=== PATIENT | female | born 1990 | race Caucasian/White ===

== ENCOUNTER → 2018-04-12 15:18 | Outpatient (CLI) | payer OTHER, SELFPAY ==
[2018-04-13 16:06] LABS: HCG Quantitative /Beta subunit < 2.39 mIU/mL
== END ==
PROVIDERS: PCP Nurse Practitioner Family; Visit Provider Nurse Practitioner Family
DX: N91.0 Primary amenorrhea (principal)
CPT/HCPCS: 36415; 84702

== ENCOUNTER 2018-06-08 14:36 | Emergency (ER) | payer OTHER, SELFPAY ==
[2018-06-08 14:45] VITALS: BP 111/77; PULSE 95; RESP 20; TEMP 36.6; O2SAT 100
--- NOTE | 2018-06-08 17:36 | ED_ITS ---
HPI - Abdominal Pain <Marilyn Marshall PA-C - Last Filed: 06/08/18 22:55> General Chief Complaint: Abdominal Pain Stated Complaint: thinks appendicitis Time Seen by Provider: 06/08/18 17:35 Source: patient Mode of arrival: ambulatory Limitations: no limitations History of Present Illness HPI narrative: This 28-year-old female comes in due to persistent abdominal pain for the last 3 months intermittently. She states that at onset she had a very severe attack, saw her PCP the next day and took a Zantac for several weeks which seemed to help. The next month she had intermittent nausea and vomiting and was diagnosed with gastritis. She states that pain has continued to follow the same pattern, usually somewhat better with food and Zantac. She states that she will have intermittent nausea and sometimes vomiting, but often does not correlate with presence or absence of pain. She states that for the last 2 weeks, pain has been persistent. She has continued to have some intermittent nausea, vomited yesterday not today. She states that she was on vacation for the last 2 weeks and did have diet change with less healthy foods. She also did some yard work and lifting prior to that so thought possibly musculoskeletal but not clear to her. Patient prefers serum confirmation of negative status as she has been actively trying to conceive Related Data Allergies Allergy/AdvReac Type Severity Reaction Status Date / Time Penicillins Allergy Anaphylaxis Verified 06/08/18 14:44 Review of Systems <Marilyn Marshall PA-C - Last Filed: 06/08/18 22:55> Review of Systems All systems reviewed & are unremarkable except as noted in HPI and below Exam <Marilyn Marshall PA-C - Last Filed: 06/08/18 22:55> Narrative Exam Narrative: GENERAL APPEARANCE: Patient sitting comfortably, in no distress. HEENT: PERRL, EOMI, no scleral icterus NECK: Supple LUNGS: Clear to auscultation bilaterally. HEART: Rate and rhythm regular, normal S1 and S2, no S3 or S4. ABDOMEN: Soft, nondistended, bowel sounds present x 4 quadrants, no masses palpable, no hepatosplenomegaly. She has moderate left epigastric to upper quadrant tenderness without guarding or rebound. She has referred pain from the right upper quadrant to the left, no focal pain elsewhere. No suprapubic or pelvic tenderness EXTREMITIES: No edema, no cyanosis DERMATOLOGIC: No jaundice or exanthem NEUROLOGIC: Alert and oriented with normal speech and coordination Initial Vital Signs Initial Vital Signs: Vital Signs Temperature 97.8 F 06/08/18 14:45 Pulse Rate 95 H 06/08/18 14:45 Respiratory Rate 20 06/08/18 14:45 Blood Pressure 111/77 06/08/18 14:45 Pulse Oximetry 100 06/08/18 14:45 <Montana Saini DO - Last Filed: 06/09/18 03:51> Initial Vital Signs Initial Vital Signs: Vital Signs Temperature 97.8 F 06/08/18 14:45 Pulse Rate 95 H 06/08/18 14:45 Respiratory Rate 20 06/08/18 14:45 Blood Pressure 111/77 06/08/18 14:45 Pulse Oximetry 100 06/08/18 14:45 Course <Marilyn Marshall PA-C - Last Filed: 06/08/18 22:55> Additional Information: Reviewed lab work and CT with patient, lack of acute urgent findings. 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 She is feeling somewhat improved after medications here with resolution of nausea, no vomiting, some improvement in pain. She states that H2 blockers to help her abdominal symptoms but tend to give her headaches, so she will continue on [id number] PPI. She was given a prepack of Zofran for tonight , and she already has follow-up scheduled with her PCP tomorrow. She agreed to return if any acutely worsening symptoms in the interim. Discussed this may be a combination of left-sided musculoskeletal strain, ovarian cyst, and her ongoing gastritis/reflux Orders Ordered: ED Orders 06/08/18 19:11 CT abdomen pelvis w con Stat Discontinued Medications Al Hydrox/Mg Hydrox/Simethicone 20 ml/ Lidocaine HCl 15 ml 0 ml PO NOW ONE Stop: 06/08/18 17:58 Last Admin: 06/08/18 18:23 Dose: 10 ml Ketorolac Tromethamine (Toradol) 30 mg IV NOW ONE Stop: 06/08/18 19:12 Last Admin: 06/08/18 19:27 Dose: 30 mg Ondansetron HCl (Zofran Odt Prepack) 1 bottle MISC SEEINSTR ONE Stop: 06/08/18 20:49 Last Admin: 06/08/18 20:55 Dose: 1 bottle Pantoprazole Sodium (Protonix) 40 mg IV NOW ONE Stop: 06/08/18 19:12 Last Admin: 06/08/18 19:28 Dose: 40 mg Ranitidine HCl (Zantac) 300 mg PO NOW ONE Stop: 06/08/18 19:12 Last Admin: 06/08/18 19:28 Dose: 300 mg Vital Signs - 8 hr 06/08/18 21:53 06/08/18 21:56 Pulse Rate 80 57 L Respiratory Rate 16 12 Blood Pressure 98/61 Blood Pressure [Right Arm] 128/84 H Pulse Oximetry 100 98 <Montana Saini DO - Last Filed: 06/09/18 03:51> Orders Ordered: ED Orders 06/08/18 19:11 CT abdomen pelvis w con Stat Discontinued Medications Al Hydrox/Mg Hydrox/Simethicone 20 ml/ Lidocaine HCl 15 ml 0 ml PO NOW ONE Stop: 06/08/18 17:58 Last Admin: 06/08/18 18:23 Dose: 10 ml Ketorolac Tromethamine (Toradol) 30 mg IV NOW ONE Stop: 06/08/18 19:12 Last Admin: 06/08/18 19:27 Dose: 30 mg Ondansetron HCl (Zofran Odt Prepack) 1 bottle MISC SEEINSTR ONE Stop: 06/08/18 20:49 Last Admin: 06/08/18 20:55 Dose: 1 bottle Pantoprazole Sodium (Protonix) 40 mg IV NOW ONE Stop: 06/08/18 19:12 Last Admin: 06/08/18 19:28 Dose: 40 mg Ranitidine HCl (Zantac) 300 mg PO NOW ONE Stop: 06/08/18 19:12 Last Admin: 06/08/18 19:28 Dose: 300 mg Vital Signs - 8 hr 06/08/18 21:53 06/08/18 21:56 Pulse Rate 80 57 L Respiratory Rate 16 12 Blood Pressure 98/61 Blood Pressure [Right Arm] 128/84 H Pulse Oximetry 100 98 MDM - Abdominal Pain <Marilyn Marshall PA-C - Last Filed: 06/08/18 22:55> Lab Data Attestation: I reviewed the patient's lab results. Result diagrams: 06/08/18 17:23 06/08/18 17:23 Lab Results 06/08/18 06/08/1818 Range/Units 17:23 17:23 17:25 WBC 7.2 (4.5-11.0) X10^3/uL RBC 4.88 (4.0-5.2) X10^6/uL Hgb 11.8 L (12.0-16.0) g/dL Hct 36.0 (36-46) % MCV 73.8 L (80-100) fL MCH 24.1 L (26-34) PG MCHC 32.7 (30-36) % RDW 14.5 (11.6-14.8) % Plt Count 234 (150-400) X10^3/uL Neut % (Auto) 59.0 (50-75) % Lymph % (Auto) 31.1 (25-40) % [place] % (Auto) 7.7 (3-14) % Eos % (Auto) 0.7 L (2-4) % Baso % (Auto) 1.5 (0-2) % Neut # (Auto) 4300 (5187-6056) /uL Sodium 140 (137-145) mmol/L Potassium 3.6 (3.4-5.1) mmol/L Chloride 106 (98-107) mmol/L Carbon Dioxide 24 (22-32) mmol/L BUN 13 (7-17) mg/dL Creatinine 0.60 (0.52-1.04) mg/dL Estimated GFR > 60.0 (>60) mL/min BUN/Creatinine Ratio 21.7 (6-22) Glucose 94 (70-100) mg/dL Calcium 9.4 (8.4-10.2) mg/dL Total Bilirubin 0.4 (0.2-1.3) mg/dL AST 17 (14-36) IU/L ALT 19 (9-52) IU/L Alkaline Phosphatase 55 (38-126) U/L Total Protein 6.9 (6.3-8.2) g/dL Albumin 4.2 (3.5-5.0) g/dL Globulin 2.7 (1.7-4.1) g/dL Albumin/Globulin Ratio 1.6 (1.0-2.8) Lipase 492 H (23-300) U/L Procalcitonin < 0.05 (<0.5) ng/mL Serum , Qual Negative (Negative) Point of care testing: Point of Care Testing Test Results Negative Urine Dip Bedside Urine Glucose Negative Bedside Urine Bilirubin - Negative Bedside Urine Ketone - Negative Urine Specific [place] 1.025 Bedside Urine Occult Blood - Negative Bedside Urine pH 6.0 Bedside Urine Protein - Negative Bedside Urine Urobilinogen - Negative Bedside Urine Nitrite - Negative Bedside Urine Leukocytes - Negative Esterase Imaging Data CT scan - abdomen: Radiologist's impression: View Report History [address] [address] [address] Scan Report Signed Patient: Zuleika Rosario MR#: [id number] : 1990 Acct:[id number] Age/Sex: 28 / F Date of Service: 06/08/18 Loc: ED Accession Number: [id number] Procedure: CT abdomen pelvis w con Ordering Provider: Marilyn Marshall P.A-C PROCEDURE: CT ABDOMEN PELVIS W CON INDICATIONS: L. uq epigastric pain TECHNIQUE: After the administration of oral and intravenous contrast, 5 mm thick sections acquired from the diaphragms to the symphysis. 5 mm thick coronal and sagittal reformats were performed. For radiation dose reduction, the following was used: automated exposure control, adjustment of mA and/or kV according to patient size. COMPARISON: None. FINDINGS: Image quality: Excellent. ABDOMEN: Lung bases: Lung bases are clear. Heart size is normal. Solid organs: Liver is normal in size and enhancement. Gallbladder is within normal limits. Biliary system is non-dilated. Pancreas enhances normally. Spleen is normal in size and enhancement. No adrenal nodules. Kidneys are normal in size and enhancement, without hydronephrosis. Peritoneum and bowel: Stomach, small bowel, and colon loops are normal in caliber and wall thickness. No pneumoperitoneum. Small amount of free fluid within the pelvis, within physiological limits in a menstruating female. Normal appendix. Nodes and vessels: No retroperitoneal or mesenteric adenopathy. Aorta and inferior vena cava are normal in caliber. Miscellaneous: No ventral hernias. PELVIS: Genitourinary: Bladder wall thickness is normal. Partially collapsed appearing left ovarian cyst. Miscellaneous: No inguinal hernias or adenopathy. Bones: No suspicious bony lesions. No vertebral body compression fractures. IMPRESSION: 1. Findings consistent with a recently ruptured left ovarian cyst. 2. Normal appendix. <Montana Saini, DO - Last Filed: 06/09/18 03:51> Lab Data Lab Results 06/08/18 06/08/18 06/08/18 Range/Units 17:23 17:23 17:25 WBC 7.2 (4.5-11.0) X10^3/uL RBC 4.88 (4.0-5.2) X10^6/uL Hgb 11.8 L (12.0-16.0) g/dL Hct 36.0 (36-46) % MCV 73.8 L (80-100) fL MCH 24.1 L (26-34) PG MCHC 32.7 (30-36) % RDW 14.5 (11.6-14.8) % Plt Count 234 (150-400) X10^3/uL Neut % (Auto) 59.0 (50-75) % Lymph % (Auto) 31.1 (25-40) % [place] % (Auto) 7.7 (3-14) % Eos % (Auto) 0.7 L (2-4) % Baso % (Auto) 1.5 (0-2) % Neut # (Auto) 4300 (6598-6258) /uL Sodium 140 (137-145) mmol/L Potassium 3.6 (3.4-5.1) mmol/L Chloride 106 (98-107) mmol/L Carbon Dioxide 24 (22-32) mmol/L BUN 13 (7-17) mg/dL Creatinine 0.60 (0.52-1.04) mg/dL Estimated GFR > 60.0 (>60) mL/min BUN/Creatinine Ratio 21.7 (6-22) Glucose 94 (70-100) mg/dL Calcium 9.4 (8.4-10.2) mg/dL Total Bilirubin 0.4 (0.2-1.3) mg/dL AST 17 (14-36) IU/L ALT 19 (9-52) IU/L Alkaline Phosphatase 55 (38-126) U/L Total Protein 6.9 (6.3-8.2) g/dL Albumin 4.2 (3.5-5.0) g/dL Globulin 2.7 (1.7-4.1) g/dL Albumin/Globulin Ratio 1.6 (1.0-2.8) Lipase 492 H (23-300) U/L Procalcitonin < 0.05 (<0.5) ng/mL Serum , Qual Negative (Negative) Point of care testing: Point of Care Testing Test Results Negative Urine Dip Bedside Urine Glucose Negative Bedside Urine Bilirubin - Negative Bedside Urine Ketone - Negative Urine Specific [place] 1.025 Bedside Urine Occult Blood - Negative Bedside Urine pH 6.0 Bedside Urine Protein - Negative Bedside Urine Urobilinogen - Negative Bedside Urine Nitrite - Negative Bedside Urine Leukocytes - Negative Esterase Discharge Plan Departure Patient Disposition: Home, Self-Care Clinical Impression: Abdominal pain Discharge Date/Time: 06/08/18 20:50 Interventions: ED Discharge Assessment Last Done: 06/08/18 21:53 Activity Restrictions/Additional Instructions: Your testing tonight does not show evidence of acute inflammation or infection. It looks like you might have had a cyst on her left ovary that ruptured. Perhaps this in addition to straining or left side and the gastritis and reflux that you have been dealing with are the source of your symptoms. Since you are feeling a bit better, please try taking [id number] Prilosec or Prevacid once daily about 45 min prior to a meal. You can use the Zofran that we gave you if needed for nausea. You should return as we talked about if you have acutely worsening symptoms, and otherwise follow up with your PCP next week Referrals: Angelique Parker ARNP [Primary Care Provider] - <[place] Saini DO - Last Filed: 06/09/18 03:51> Cosign ED Attending Ami Attestation: I was immediately available in the department for consultation. Documentation has been reviewed. I agree with assessment and plan.
[2018-06-08 17:37] LABS: Add Manual Diff / Slide Review NO; Basophils Percent Auto 1.5 % (0-2); Eosinophils Percent Auto 0.7 % (2-4); Hemoglobin 11.8 g/dL (12.0-16.0); Lymphocytes Percent Auto 31.1 % (25-40); Mean Corpuscular HGB Conc 32.7 % (30-36); Mean Corpuscular Hemoglobin 24.1 PG (26-34); Mean Corpuscular Volume 73.8 fL (80-100); Monocytes Percent Auto 7.7 % (3-14); Neutrophils Absolute Auto 4300 /uL (3000-5900); Platelet Count 234 X10^3/uL (150-400); Red Blood Cell Count 4.88 X10^6/uL (4.0-5.2); Red Cell Distribution Width 14.5 % (11.6-14.8); White Blood Cell Count 7.2 X10^3/uL (4.5-11.0)
[2018-06-08 17:51] LABS: Alanine Aminotransferase 19 IU/L (9-52); Albumin 4.2 g/dL (3.5-5.0); Albumin Globulin Ratio 1.6 (1.0-2.8); Alkaline Phosphatase 55 U/L (38-126); Aspartate Aminotransferase 17 IU/L (14-36); BUN Creatinine Ratio 21.7 (6-22); Bilirubin Total 0.4 mg/dL (0.2-1.3); Blood Urea Nitrogen 13 mg/dL (7-17); Calcium 9.4 mg/dL (8.4-10.2); Carbon Dioxide 24 mmol/L (22-32); Chloride 106 mmol/L (98-107); Estimated Glomerular Filt Rate > 60.0 mL/min (>60); Globulin 2.7 g/dL (1.7-4.1); Glucose 94 mg/dL (70-100); HEMOLYSIS < 15 (0-50); Lipase 492 U/L (23-300); Potassium 3.6 mmol/L (3.4-5.1); Sodium 140 mmol/L (137-145); Total Protein 6.9 g/dL (6.3-8.2)
[2018-06-08] MEDS: MAG HYDROX/ALUMINUM/SIMETH SUS 20 ML, LIDOCAINE VISCOUS 2% 15 ML PO (18:23)
[2018-06-08 18:34] VITALS: BP 108/55; PULSE 80; RESP 12; O2SAT 99
[2018-06-08 18:56] LABS: Pregnancy Test Serum,Qual Negative (Negative)
--- NOTE | 2018-06-08 19:11 | DI.CT.S_ITS ---
PROCEDURE: CT ABDOMEN PELVIS W CON INDICATIONS: L. uq epigastric pain TECHNIQUE: After the administration of oral and intravenous contrast, 5 mm thick sections acquired from the diaphragms to the symphysis. 5 mm thick coronal and sagittal reformats were performed. For radiation dose reduction, the following was used: automated exposure control, adjustment of mA and/or kV according to patient size. COMPARISON: None. FINDINGS: Image quality: Excellent. ABDOMEN: Lung bases: Lung bases are clear. Heart size is normal. Solid organs: Liver is normal in size and enhancement. Gallbladder is within normal limits. Biliary system is non-dilated. Pancreas enhances normally. Spleen is normal in size and enhancement. No adrenal nodules. Kidneys are normal in size and enhancement, without hydronephrosis. Peritoneum and bowel: Stomach, small bowel, and colon loops are normal in caliber and wall thickness. No pneumoperitoneum. Small amount of free fluid within the pelvis, within physiological limits in a menstruating female. Normal appendix. Nodes and vessels: No retroperitoneal or mesenteric adenopathy. Aorta and inferior vena cava are normal in caliber. Miscellaneous: No ventral hernias. PELVIS: Genitourinary: Bladder wall thickness is normal. Partially collapsed appearing left ovarian cyst. Miscellaneous: No inguinal hernias or adenopathy. Bones: No suspicious bony lesions. No vertebral body compression fractures. IMPRESSION: 1. Findings consistent with a recently ruptured left ovarian cyst. 2. Normal appendix. Dictated by: Kayleigh Soto M.D. on 06/08/2018 at 20:33 Approved by: Kayleigh Soto M.D. on 06/08/2018 at 20:35
[2018-06-08 19:21] LABS: Procalcitonin < 0.05 ng/mL (<0.5)
[2018-06-08] MEDS: KETOROLAC 60 MG/2 ML VIAL 30 MG IV (19:27)
[2018-06-08] MEDS: PANTOPRAZOLE 40 MG VIAL IV (19:28)
--- NOTE | 2018-06-08 19:41 | PC.NURSE ---
patient started PO contrast at 1924.
[2018-06-08] MEDS: ONDANSETRON 4 MG ODT PREPACK 1 BOTTLE MISC (20:55)
[2018-06-08 21:53] VITALS: BP 98/61; PULSE 80; RESP 16; O2SAT 100
[2018-06-08 21:56] VITALS: BP 128/84; PULSE 57; RESP 12; O2SAT 98
== END 2018-06-08 20:50 | disposition home or self-care (01) ==
PROVIDERS: Emergency Medicine; Emergency Provider Internal Medicine; PCP Nurse Practitioner Family
DX: R10.9 Unspecified abdominal pain (principal)
CPT/HCPCS: 36591; 74177; 80053; 81003; 81025; 83690; 84145; 84703; 85025; 96374; 96375; 99283; 99284; C9113; J1885; Q9967

== ENCOUNTER → 2018-07-06 09:47 | Outpatient (CLI) | payer OTHER, SELFPAY ==
--- NOTE | 2018-07-06 | DI.US.S_ITS ---
PROCEDURE: US PELVIC COMPLETE INDICATIONS: LEFT OVARIAN CYST TECHNIQUE: Real-time scanning was performed of the pelvic organs, with image documentation. Additional endovaginal scanning was necessary due to incomplete visualization of the adnexal and endometrial structures by transabdominal scanning. COMPARISON: [facility], CT, CT ABDOMEN PELVIS W CON, 06/08/2018, 20:03. FINDINGS: Transabdominal scanning: Limited scanning through the kidneys shows no hydronephrosis. The kidneys measure 10.6 CM right and 10.9 CM left. No pathologic free abdominal or pelvic fluid. Endovaginal scanning: Uterus: Uterus is normal in size at 3.5 x 4.3 x 7.2 cm. The endometrium measures 5 mm in combined thickness. Multiple small nabothian cysts. Ovaries: The right ovary measures 33 x 40 x 42 mm. Again noted is a ruptured cyst now measuring 16 x 19 x 20 mm. The left ovary shows normal follicular development and measures 24 x 35 x 44 mm. IMPRESSION: 1. Normal uterus and left ovary. 2. 2 cm ruptured cyst right ovary. Dictated by: Taj Kyle M.D. on 07/06/2018 at 13:47 Approved by: Taj Kyle M.D. on 07/06/2018 at 13:50
== END ==
PROVIDERS: PCP Nurse Practitioner Family; Visit Provider Nurse Practitioner Family
DX: N83.201 Unspecified ovarian cyst, right side (principal)
CPT/HCPCS: 76830; 76856

== ENCOUNTER 2018-12-12 11:14 | Emergency (ER) | payer OTHER, SELFPAY ==
[2018-12-12 11:27] VITALS: BP 126/86; PULSE 96; RESP 20; TEMP 36.3; O2SAT 97
[2018-12-12 11:58] LABS: Appearance Urine UA CLEAR; Bacteria Urine None Seen; Bilirubin Urine UA NEGATIVE (NEGATIVE); Color Urine UA YELLOW; Glucose Urine UA NEGATIVE (Negative); Ketones Urine UA NEGATIVE (NEGATIVE); Leukocyte Esterase Urine UA NEGATIVE (NEGATIVE); Nitrite Urine UA NEGATIVE (Negative); Occult Blood Urine UA NEGATIVE (Negative); Protein Urine UA NEGATIVE (Negative); RBC Urine None Seen (0-5/HPF); Specific Gravity Urine UA <=1.005 (1.000-1.035); Urobilinogen Urine UA 0.2 E.U./dL (0.2); WBC Urine None Seen (0-5/HPF); pH Urine UA 6.5 (4.5-8.0)
[2018-12-12 12:10] LABS: Culture Indicated Urine Cult Not Indicated; Squamous Epithelial Cell Urine 0-1 /HPF
--- NOTE | 2018-12-12 13:30 | ED.FEMALEGU ---
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 She states she is approximately 4 weeks with a positive test yesterday. She complains of some cramping in her left flank radiating around to her left upper quadrant. She states her left upper quadrant has been painful for approximately 6 months. She denies any concerned about STI. She notes urinary frequency and cloudy urine is concerned she has a UTI. She denies any fever. She denies any abnormal nausea vomiting or diarrhea. She denies any vaginal discharge. She denies any concern for sexually transmitted infections. She does have a history of miscarriage. She is being followed by Gastroenterology for her left upper quadrant pain and she has had imaging done and scopes done. Related Data Allergies Allergy/AdvReac Type Severity Reaction Status Date / Time Penicillins Allergy Anaphylaxis Verified 06/08/18 14:44 Review of Systems <BLAYNE Dickens - Last Filed: 12/12/18 18:21> Review of Systems GENERAL: Denies chills, fatigue, malaise, fever, sweats. HEENT: Denies sinus pain, ear pain, sore throat, difficulty swallowing, dizziness. RESPIRATORY: Denies dyspnea, cough, wheezing, hemoptysis, sputum. CARDIOVASCULAR: Denies chest pain, palpitations, orthopnea, edema, GASTROINTESTINAL: See HPI : See HPI MUSCULOSKELETAL: denies weakness, joint pain, or bony pain SKIN: Denies rash, skin lesions, or other NEUROLOGIC: Denies weakness, headache, numbness, change in speech, confusion, seizures, incoordination. PSYCHIATRIC: No concerning psychosocial issues. 12 point review of systems is negative except for those stated above Exam <BLAYNE Dickens - Last Filed: 12/12/18 18:21> Narrative Exam Narrative: GENERAL: This is a well-nourished, well-developed patient, sitting on stretcher no acute distress HEAD: Atraumatic. Normocephalic. No temporal or scalp tenderness. EYES: Pupils equal round and reactive. Extraocular motions intact. No scleral icterus. No injection or drainage. ENT: Nose without bleeding, purulent drainage or septal hematoma. Throat without erythema, tonsillar hypertrophy or exudate. Uvula midline. Airway patent. NECK: Trachea midline. No JVD or lymphadenopathy. Supple, nontender, no meningeal signs. CARDIOVASCULAR: Regular rate and rhythm without murmurs, gallops, or rubs. RESPIRATORY: Clear to auscultation. Breath sounds equal bilaterally. No wheezes, rales, or rhonchi. GASTROINTESTINAL: Abdomen soft, nondistended. No hepato-splenomegaly, or palpable masses. No guarding. Active bowel sounds all 4 quadrants. Diffuse tenderness to palpation left upper quadrant. EXTREMITIES: No clubbing, cyanosis, or edema. No joint tenderness, effusion, or edema noted. BACK: Nontender without deformity or crepitance. No flank tenderness. NEURO: AOx3. Using all extremities equally SKIN: No rash or erythema. Initial Vital Signs Initial Vital Signs: Vital Signs Temperature 97.3 F L 12/12/18 11:27 Pulse Rate 96 H 12/12/18 11:27 Respiratory Rate 20 12/12/18 11:27 Blood Pressure 126/86 12/12/18 11:27 Pulse Oximetry 97 12/12/18 11:27 <Rebecca Alexandre MD - Last Filed: 12/12/18 18:54> Initial Vital Signs Initial Vital Signs: Vital Signs Temperature 97.3 F L 12/12/18 11:27 Pulse Rate 96 H 12/12/18 11:27 Respiratory Rate 20 12/12/18 11:27 Blood Pressure 126/86 12/12/18 11:27 Pulse Oximetry 97 12/12/18 11:27 Course <JORGE ALBERTO Dickens - Last Filed: 12/12/18 18:21> Course Narrative: I checked on the patient several times throughout her stay in the emergency department. Orders Ordered: ED Orders 12/12/18 11:45 Urinalysis and Microscopic Stat 12/12/18 13:30 Amylase Stat Complete Blood Count AUTO DIFF Stat Comprehensive Metabolic Panel Stat HCG Quantitative Stat Lipase Stat Vital Signs - 8 hr 12/12/18 11:27 12/12/18 15:12 Temperature 97.3 F L 98.3 F Pulse Rate 96 H 81 Respiratory Rate 20 20 Blood Pressure 126/86 114/63 Pulse Oximetry 97 98 <Rebecca Alexandre MD - Last Filed: 12/12/18 18:54> Orders Ordered: ED Orders 12/12/18 11:45 Urinalysis and Microscopic Stat 12/12/18 13:30 Amylase Stat Complete Blood Count AUTO DIFF Stat Comprehensive Metabolic Panel Stat HCG Quantitative Stat Lipase Stat Vital Signs - 8 hr 12/12/18 11:27 12/12/18 15:12 Temperature 97.3 F L 98.3 F Pulse Rate 96 H 81 Respiratory Rate 20 20 Blood Pressure 126/86 114/63 Pulse Oximetry 97 98 MDM - Female Genitourinary <JUSTINE Dickens- - Last Filed: 12/12/18 18:21> Lab Data Result diagrams: 12/12/18 13:30 12/12/18 13:30 Lab Results 12/12/18 12/12/18 12/12/18 Range/Units 11:45 13:30 13:30 WBC 4.5 (4.5-11.0) X10^3/uL RBC 5.14 (4.0-5.2) X10^6/uL Hgb 12.2 (12.0-16.0) g/dL Hct 37.9 (36-46) % MCV 73.7 L (80-100) fL MCH 23.8 L (26-34) PG MCHC 32.2 (30-36) % RDW 14.4 (11.6-14.8) % Plt Count 256 (150-400) X10^3/uL Neut % (Auto) 58.0 (50-75) % Lymph % (Auto) 30.9 (25-40) % [place] % (Auto) 9.0 (3-14) % Eos % (Auto) 0.2 L (2-4) % Baso % (Auto) 1.9 (0-2) % Neut # (Auto) 2600 (4010-0229) /uL Lymph # (Auto) 1400 (8339-6426) /uL [place] # (Auto) 400 (0-900) /uL Eos # (Auto) 0 (0-450) /uL Baso # (Auto) 100 (0-100) /uL Sodium 141 (137-145) mmol/L Potassium 4.3 (3.4-5.1) mmol/L Chloride 106 (98-107) mmol/L Carbon Dioxide 25 (22-32) mmol/L BUN 8 (7-17) mg/dL Creatinine 0.50 L (0.52-1.04) mg/dL Estimated GFR > 60.0 (>60) mL/min BUN/Creatinine Ratio 16.0 (6-22) Glucose 93 (70-100) mg/dL Calcium 9.6 (8.4-10.2) mg/dL Total Bilirubin 0.6 (0.2-1.3) mg/dL AST 18 (14-36) IU/L ALT 19 (9-52) IU/L Alkaline Phosphatase 56 (38-126) U/L Total Protein 7.8 (6.3-8.2) g/dL Albumin 4.7 (3.5-5.0) g/dL Globulin 3.1 (1.7-4.1) g/dL Albumin/Globulin Ratio 1.5 (1.0-2.8) Amylase 54 (30-110) U/L Lipase 443 H (23-300) U/L HCG, Quant 8.62 mIU/mL Urine Color Yellow Urine Appearance Clear Urine pH 6.5 (4.5-8.0) Ur Specific [place] <=1.005 (1.000-1.035) Urine Protein Negative (Negative) Urine Glucose (UA) Negative (Negative) g/dL Urine Ketones Negative (NEGATIVE) Urine Occult Blood Negative (Negative) Urine Nitrate Negative (Negative) Urine Bilirubin Negative (NEGATIVE) Urine Urobilinogen 0.2 (0.2) E.U./dL Ur Leukocyte Esterase Negative (NEGATIVE) Urine RBC None seen (0-5/HPF) Urine WBC None seen (0-5/HPF) Ur Squamous Epith Cells 0-1 /hpf Urine Bacteria None seen (None) Ur Culture Indicated? Cult not indicated Point of Care Testing Test Results Negative Urine Dip Bedside Urine Glucose Negative Bedside Urine Bilirubin - Negative Bedside Urine Ketone - Negative Urine Specific [place] 1.005 Bedside Urine Occult Blood - Negative Bedside Urine pH 7.0 Bedside Urine Protein - Negative Bedside Urine Urobilinogen - Negative Bedside Urine Nitrite - Negative Bedside Urine Leukocytes - Negative Esterase MDM Narrative Medical decision making narrative: Patient is a 28 year female presents with chief complaint of flank pain and cloudy urine. She states she is 1 month . However urine was negative, UA was negative and beta HCG serum quant was 8. Thus according to her urine lab work, she is not this point time. She had was noted to have an elevated lipase. However she does not have an acute abdomen on exam. She is hemodynamically stable and afebrile in the emergency department. She does not want to pursue further imaging including CT scan at this time due to her positive home test despite her negative tests here. I discussed at length return precautions to the emergency department including inability keep down fluids, sudden severe pain, fever. She works as a nurse in appears to have good understanding of when to come back to the emergency department and return precautions. She does not want to have an ultrasound done as she does not think it will show anything at this time. Patient has no questions or concerns upon discharge and states she will follow up as planned with OB on Thursday. <Rebecca Alexandre MD - Last Filed: 12/12/18 18:54> Lab Data Lab Results 12/12/18 12/12/18 12/12/18 Range/Units 11:45 13:30 13:30 WBC 4.5 (4.5-11.0) X10^3/uL RBC 5.14 (4.0-5.2) X10^6/uL Hgb 12.2 (12.0-16.0) g/dL Hct 37.9 (36-46) % MCV 73.7 L (80-100) fL MCH 23.8 L (26-34) PG MCHC 32.2 (30-36) % RDW 14.4 (11.6-14.8) % Plt Count 256 (150-400) X10^3/uL Neut % (Auto) 58.0 (50-75) % Lymph % (Auto) 30.9 (25-40) % [place] % (Auto) 9.0 (3-14) % Eos % (Auto) 0.2 L (2-4) % Baso % (Auto) 1.9 (0-2) % Neut # (Auto) 2600 (0210-9469) /uL Lymph # (Auto) 1400 (8222-7239) /uL [place] # (Auto) 400 (0-900) /uL Eos # (Auto) 0 (0-450) /uL Baso # (Auto) 100 (0-100) /uL Sodium 141 (137-145) mmol/L Potassium 4.3 (3.4-5.1) mmol/L Chloride 106 (98-107) mmol/L Carbon Dioxide 25 (22-32) mmol/L BUN 8 (7-17) mg/dL Creatinine 0.50 L (0.52-1.04) mg/dL Estimated GFR > 60.0 (>60) mL/min BUN/Creatinine Ratio 16.0 (6-22) Glucose 93 (70-100) mg/dL Calcium 9.6 (8.4-10.2) mg/dL Total Bilirubin 0.6 (0.2-1.3) mg/dL AST 18 (14-36) IU/L ALT 19 (9-52) IU/L Alkaline Phosphatase 56 (38-126) U/L Total Protein 7.8 (6.3-8.2) g/dL Albumin 4.7 (3.5-5.0) g/dL Globulin 3.1 (1.7-4.1) g/dL Albumin/Globulin Ratio 1.5 (1.0-2.8) Amylase 54 (30-110) U/L Lipase 443 H (23-300) U/L HCG, Quant 8.62 mIU/mL Urine Color Yellow Urine Appearance Clear Urine pH 6.5 (4.5-8.0) Ur Specific [place] <=1.005 (1.000-1.035) Urine Protein Negative (Negative) Urine Glucose (UA) Negative (Negative) g/dL Urine Ketones Negative (NEGATIVE) Urine Occult Blood Negative (Negative) Urine Nitrate Negative (Negative) Urine Bilirubin Negative (NEGATIVE) Urine Urobilinogen 0.2 (0.2) E.U./dL Ur Leukocyte Esterase Negative (NEGATIVE) Urine RBC None seen (0-5/HPF) Urine WBC None seen (0-5/HPF) Ur Squamous Epith Cells 0-1 /hpf Urine Bacteria None seen (None) Ur Culture Indicated? Cult not indicated Point of Care Testing Test Results Negative Urine Dip Bedside Urine Glucose Negative Bedside Urine Bilirubin - Negative Bedside Urine Ketone - Negative Urine Specific [place] 1.005 Bedside Urine Occult Blood - Negative Bedside Urine pH 7.0 Bedside Urine Protein - Negative Bedside Urine Urobilinogen - Negative Bedside Urine Nitrite - Negative Bedside Urine Leukocytes - Negative Esterase Discharge Plan Departure Patient Disposition: Home Clinical Impression: Urinary urgency, Acute left flank pain, Abdominal pain, chronic, left upper quadrant, Elevated lipase Discharge Date/Time: 12/12/18 15:11 Interventions: ED Discharge Assessment Last Done: 12/12/18 15:12 Instructions: DI for Abdominal Pain-Adult, DI for Flank Pain Activity Restrictions/Additional Instructions: Your urine came back with no signs of infection, but I ordered a urine culture to make sure that it does not grow anything. If there are signs of infection from the culture we will give you a phone call and call a prescription in for you. Unfortunately your urine test came back negative for and your serum HCG is 8.62. Your lipase is elevated, but lower than it was during your May visit. We discussed imaging, but elected to not do any at this point time. Please come back to the emergency department if you have any acute concerns or changes including fever, inability keep down fluids, etc. Please follow-up with her remnants cutter as scheduled on Thursday. Please also follow up with your primary care provider as well as your GI. Come back to the emergency department if needed. Referrals: Angelique Parker ARNP [Primary Care Provider] -
[2018-12-12 13:39] LABS: Add Manual Diff / Slide Review NO; Basophils Absolute Auto 100 /uL (0-100); Basophils Percent Auto 1.9 % (0-2); Eosinophils Absolute Auto 0 /uL (0-450); Eosinophils Percent Auto 0.2 % (2-4); Hematocrit 37.9 % (36-46); Hemoglobin 12.2 g/dL (12.0-16.0); Lymphocytes Absolute Auto 1400 /uL (1100-4500); Lymphocytes Percent Auto 30.9 % (25-40); Mean Corpuscular HGB Conc 32.2 % (30-36); Mean Corpuscular Hemoglobin 23.8 PG (26-34); Mean Corpuscular Volume 73.7 fL (80-100); Monocytes Absolute Auto 400 /uL (0-900); Neutrophils Absolute Auto 2600 /uL (1500-7000); Platelet Count 256 X10^3/uL (150-400); Red Blood Cell Count 5.14 X10^6/uL (4.0-5.2); Red Cell Distribution Width 14.4 % (11.6-14.8); White Blood Cell Count 4.5 X10^3/uL (4.5-11.0)
[2018-12-12 13:49] LABS: Alanine Aminotransferase 19 IU/L (9-52); Albumin 4.7 g/dL (3.5-5.0); Albumin Globulin Ratio 1.5 (1.0-2.8); Alkaline Phosphatase 56 U/L (38-126); Amylase 54 U/L (30-110); Aspartate Aminotransferase 18 IU/L (14-36); Bilirubin Total 0.6 mg/dL (0.2-1.3); Blood Urea Nitrogen 8 mg/dL (7-17); Calcium 9.6 mg/dL (8.4-10.2); Carbon Dioxide 25 mmol/L (22-32); Chloride 106 mmol/L (98-107); Estimated Glomerular Filt Rate > 60.0 mL/min (>60); Globulin 3.1 g/dL (1.7-4.1); Glucose 93 mg/dL (70-100); HEMOLYSIS < 15 (0-50); Lipase 443 U/L (23-300); Potassium 4.3 mmol/L (3.4-5.1); Sodium 141 mmol/L (137-145); Total Protein 7.8 g/dL (6.3-8.2)
[2018-12-12 14:06] LABS: HCG Quantitative /Beta subunit 8.62 mIU/mL
[2018-12-12 15:12] VITALS: BP 114/63; PULSE 81; RESP 20; TEMP 36.8; O2SAT 98
== END 2018-12-12 15:11 | disposition home or self-care (01) ==
PROVIDERS: Emergency Medicine; Emergency Provider Nurse Practitioner Family; PCP Nurse Practitioner Family
DX: R39.15 Urgency of urination (principal); R10.9 Unspecified abdominal pain; R10.12 Left upper quadrant pain; R74.8 Abnormal levels of other serum enzymes
CPT/HCPCS: 36415; 80053; 81001; 81003; 81025; 82150; 83690; 84702; 85025; 99282; 99283

== ENCOUNTER 2019-01-28 16:55 | Emergency (ER) | payer OTHER, SELFPAY ==
[2019-01-28 17:04] VITALS: BP 123/77; PULSE 90; RESP 18; TEMP 36.7; O2SAT 100; BMI 23.3
--- NOTE | 2019-01-28 18:37 | DI.US.S_ITS ---
PROCEDURE: US OB <= 14 WEEKS FETUS INDICATIONS: INCREASED NAUSEA AND VOMITING OUTSIDE/PRIOR DATING DATA: Last menstrual period (LMP): 12/13/18. LMP-based estimated date of delivery (NAKIA): 09/19/19 First dating scan (date and location): [facility] Estimated date of delivery (NAKIA) from first dating scan: 09/20/19 TECHNIQUE: Real-time scanning was performed of the fetus and maternal pelvic organs, with image documentation. Endovaginal scanning was also performed to better visualize the fetus and maternal ovaries. COMPARISON: None. FINDINGS: Embryo: There is a very early intrauterine with crown-rump length and heart beat which measures 123 beats per minute. The gestational sac is irregularly shaped. There is a small hypoechoic area inferior to the gestational sac measuring 1.3 cm, likely representing a subchorionic hemorrhage. There is some free fluid in the cul-de-sac and left adnexa. There is a corpus luteum in the left adnexa. Measurement variability in dating: +/- 4 weeks by LMP, +/- 7 days by mean sac diameter (use before 6 weeks gestation if crown-rump length not able to be measured), +/- 5 days by crown-rump length (up to 8 weeks 6 days gestation), +/- 7 days by crown-rump length (up to 13 weeks 6 days gestation). Maternal organs: Ovaries left ovarian corpus luteum. Limited images through the kidneys demonstrate no hydronephrosis. IMPRESSION: 1. Very early IUP with crown-rump length and heart beat. 2. Small cheryl-gestational hemorrhage 3. Left adnexal corpus luteum with small amounts of left adnexal fluid and fluid in the cul-de-sac. Dictated by: Jigar Yusuf M.D. on 01/28/2019 at 20:03 Approved by: Jigar Yusuf M.D. on 01/28/2019 at 20:08
--- NOTE | 2019-01-28 19:48 | ED_ITS ---
HPI - Nausea/Vomiting/Diarrhea <Marilyn Marshall PA-C - Last Filed: 01/28/19 22:39> General Chief complaint: Abdominal Pain Stated complaint: 7 WKS UNABLE TO KEEP ANYTHING DOWN DIZZY,DIARRHEA Time Seen by Provider: 01/28/19 19:47 Source: patient Mode of arrival: ambulatory Limitations: no limitations History of Present Illness HPI Narrative: This 28-year-old female who is 7 weeks , LMP 12/13, comes in today due to gradually worsening nausea over the course of about a week. She states that she has basically been eating only crackers. She does try to keep up on her fluids today think she has not been able to. 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 She has some vomiting and mostly no appetite. She states that she has had some diarrhea/loose stools daily, not frequently. She states that she has had diarrhea with all of her other 3 pregnancies (multiple miscarriages), and this does not seem atypical. She has not had blood in the stools. She is not having abdominal pain today. She denies fever. She denies any recent, upper respiratory or flu symptoms or any other new complaints on systems review. She notes that she has been getting evaluated for elevated lipase levels and some abdominal pain prior to this but again no pain today. Related Data Previous Rx's Medication Instructions Recorded doxylamine-pyridoxine (vit B6) 1 tab PO TID #60 tab 01/28/19 ondansetron 4 mg PO Q6-8H PRN #20 tab 01/28/19 Allergies Allergy/AdvReac Type Severity Reaction Status Date / Time Penicillins Allergy Anaphylaxis Verified 06/08/18 14:44 Review of Systems <Marilyn Marshall PA-C - Last Filed: 01/28/19 22:39> Review of Systems ROS Unobtainable: All systems reviewed & are unremarkable except as noted in HPI and below PFSH <Marilyn Marshall PA-C - Last Filed: 01/28/19 22:39> Medical History History of multiple miscarriages (Chronic) Neurofibromatosis (Chronic) Thalassemia (Chronic) Surgical History History of dilatation and curettage (Resolved) History of loop electrical excision procedure (LEEP) (Resolved) Social History Smoking Status: Never smoker alcohol intake: current substance use type: does not use Social History Smoking Status: Never smoker alcohol intake: current substance use type: does not use Exam <Marilyn Marshall PA-C - Last Filed: 01/28/19 22:39> Narrative Exam Narrative: GENERAL APPEARANCE: Patient sitting comfortably, in no distress. HEENT: PERRL, EOMI, no scleral icterus NECK: Supple LUNGS: Clear to auscultation bilaterally. HEART: Rate and rhythm regular, normal S1 and S2, no S3 or S4. ABDOMEN: Soft, nontender, nondistended, bowel sounds present x 4 quadrants, no masses palpable, no hepatosplenomegaly. EXTREMITIES: No edema DERMATOLOGIC: No jaundice or exanthem NEUROLOGIC: Alert and oriented with normal speech and coordination Initial Vital Signs Initial Vital Signs: Vital Signs Temperature 98.1 F 01/28/19 17:04 Pulse Rate 90 01/28/19 17:04 Respiratory Rate 18 01/28/19 17:04 Blood Pressure 123/77 01/28/19 17:04 Pulse Oximetry 100 01/28/19 17:04 <Wilian Davis DO - Last Filed: 01/28/19 22:57> Initial Vital Signs Initial Vital Signs: Vital Signs Temperature 98.1 F 01/28/19 17:04 Pulse Rate 90 01/28/19 17:04 Respiratory Rate 18 01/28/19 17:04 Blood Pressure 123/77 01/28/19 17:04 Pulse Oximetry 100 01/28/19 17:04 Course <Marilyn Marshall PA-C - Last Filed: 01/28/19 22:39> Additional Information: Patient is feeling significantly improved at the time of discharge, tolerating food and fluids. Reviewed quantitative HCG and and ultrasound findings with her. She has had significant nausea with previous pregnancies prior to miscarrying. She will continue Zofran as needed and also trial of combination Doxylamine/pyroxidine until seeing her shrimp picker in a couple of weeks. She agrees to return if any acutely worsening symptoms again in the interim Orders Ordered: ED Orders 01/28/19 18:37 US OB <= 14 weeks fetus Stat 01/28/19 18:55 Beta HCG, Quant [HCG Quantitative] Stat Discontinued Medications Sodium Chloride (Normal Saline 0.9%) 1,000 mls @ 1,000 mls/hr IV BOLUS ONE Stop: 01/28/19 20:46 Last Infusion: 01/28/19 21:00 Dose: 0 mls/hr Admin: 01/28/19 19:55 Dose: 1,000 mls/hr Ondansetron HCl (Zofran) 4 mg IV NOW ONE Stop: 01/28/19 19:48 Last Admin: 01/28/19 22:31 Dose: Not Given Ondansetron HCl (Zofran Odt Prepack) 1 bottle MISC SEEINSTR ONE Stop: 01/28/19 22:20 Last Admin: 01/28/19 22:30 Dose: 1 bottle Vital Signs - 8 hr 01/28/19 17:04 01/28/19 19:50 01/28/19 22:37 Temperature 98.1 F Pulse Rate 90 90 98 H Respiratory Rate 18 12 15 Blood Pressure 123/77 99/56 L Blood Pressure [Left Arm] 112/59 L Pulse Oximetry 100 98 100 <Wilian Davis DO - Last Filed: 01/28/19 22:57> Orders Ordered: ED Orders 01/28/19 18:37 US OB <= 14 weeks fetus Stat 01/28/19 18:55 Beta HCG, Quant [HCG Quantitative] Stat Discontinued Medications Sodium Chloride (Normal Saline 0.9%) 1,000 mls @ 1,000 mls/hr IV BOLUS ONE Stop: 01/28/19 20:46 Last Infusion: 01/28/19 21:00 Dose: 0 mls/hr Admin: 01/28/19 19:55 Dose: 1,000 mls/hr Ondansetron HCl (Zofran) 4 mg IV NOW ONE Stop: 01/28/19 19:48 Last Admin: 01/28/19 22:31 Dose: Not Given Ondansetron HCl (Zofran Odt Prepack) 1 bottle MISC SEEINSTR ONE Stop: 01/28/19 22:20 Last Admin: 01/28/19 22:30 Dose: 1 bottle Vital Signs - 8 hr 01/28/19 17:04 01/28/19 19:50 01/28/19 22:37 Temperature 98.1 F Pulse Rate 90 90 98 H Respiratory Rate 18 12 15 Blood Pressure 123/77 99/56 L Blood Pressure [Left Arm] 112/59 L Pulse Oximetry 100 98 100 MDM - Nausea/Vomiting/Diarrhea <Marilyn Marshall PA-C - Last Filed: 01/28/19 22:39> Lab Data Lab Results 01/28/19 Range/Units 18:55 HCG, Quant 32915 mIU/mL Urine Dip Bedside Urine Glucose Negative Bedside Urine Bilirubin - Negative Bedside Urine Ketone - Negative Urine Specific [place] 1.015 Bedside Urine Occult Blood - Negative Bedside Urine pH 6.0 Bedside Urine Protein - Negative Bedside Urine Urobilinogen - Negative Bedside Urine Nitrite - Negative Bedside Urine Leukocytes - Negative Esterase <Wilian Davis DO - Last Filed: 01/28/19 22:57> Lab Data Lab Results 01/28/19 Range/Units 18:55 HCG, Quant 01937 mIU/mL Urine Dip Bedside Urine Glucose Negative Bedside Urine Bilirubin - Negative Bedside Urine Ketone - Negative Urine Specific [place] 1.015 Bedside Urine Occult Blood - Negative Bedside Urine pH 6.0 Bedside Urine Protein - Negative Bedside Urine Urobilinogen - Negative Bedside Urine Nitrite - Negative Bedside Urine Leukocytes - Negative Esterase Discharge Plan Departure Patient Disposition: Home Clinical Impression: Nausea and vomiting during Discharge Date/Time: 01/28/19 22:34 Interventions: ED Discharge Assessment Last Done: 01/28/19 22:37 Instructions: Nausea of (Alternative Therapy), DI for Nausea -- Adult Activity Restrictions/Additional Instructions: Please drink clear fluids and try to eat a small amount of bland food every hr or 2 to help keep something in your stomach as this may help with nausea. You can take the Zofran as needed every 6-8 hours. I sent in a prescription for the combination doxylamine-pyroxidine for you to try as it did not come up as non covered on your formulary for me in the computer, so I thought we would try. Please try taking 2 tablets of it at bedtime to see if it helps your nausea. You can add additional 1 tablet twice daily if it does not make you to sleepy to take during the day. Please call your new shrimp picker and let them know you were seen in the emergency room today as they may want to follow up with you sooner. As we talked about, of course you should return here if you have any acutely worsening symptoms again in the interim Best wishes with your ! Prescriptions: New doxylamine-pyridoxine (vit B6) 10-10 mg tablet,delayed release (DR/EC) 1 tab PO TID Qty: 60 RF: 0 ondansetron 4 mg tablet,disintegrating 4 mg PO Q6-8H PRN (Reason: nausea and vomiting) Qty: 20 RF: 0 Referrals: Uche Curry, [facility] [employer] [Other] <Wilian Davis DO - Last Filed: 01/28/19 22:57> Cosign ED Attending Ami Attestation: I was available for consultation during this patient's emergency department encounter
[2019-01-28 19:50] VITALS: BP 112/59; PULSE 90; RESP 12; O2SAT 98
[2019-01-28] MEDS: SODIUM CHLORIDE 0.9% 1,000 ML 1000 ML IV (19:55)
[2019-01-28 19:57] LABS: HCG Quantitative /Beta subunit 90633 mIU/mL
[2019-01-28] MEDS: ONDANSETRON 4 MG ODT PREPACK 1 BOTTLE MISC (22:30)
[2019-01-28 22:37] VITALS: BP 99/56; PULSE 98; RESP 15; O2SAT 100
== END 2019-01-28 22:34 | disposition home or self-care (01) ==
PROVIDERS: Emergency Medicine; Emergency Provider Internal Medicine; PCP Nurse Practitioner Family
DX: O21.9 Vomiting of pregnancy, unspecified (principal); Z3A.01 Less than 8 weeks gestation of pregnancy
CPT/HCPCS: 36591; 76801; 76817; 81003; 84702; 99283

== ENCOUNTER 2019-09-26 13:57 | Emergency (ER) | payer OTHER, SELFPAY ==
[2019-09-26] VITALS (15 sets, daily range): BP systolic 91–114; BP diastolic 50–68; PULSE 116–150; RESP 19–26; TEMP 37.6–39.2; O2SAT 95–100
[2019-09-26 14:46] LABS: Add Manual Diff / Slide Review NO; Basophils Absolute Auto 0 /uL (0-100); Basophils Percent Auto 0.1 % (0-2); Eosinophils Absolute Auto 0 /uL (0-450); Eosinophils Percent Auto 0.3 % (2-4); Hematocrit 28.6 % (36-46); Hemoglobin 9.4 g/dL (12.0-16.0); Lymphocytes Absolute Auto 300 /uL (1100-4500); Lymphocytes Percent Auto 2.2 % (25-40); Mean Corpuscular HGB Conc 32.8 % (30-36); Mean Corpuscular Hemoglobin 24.3 PG (26-34); Monocytes Absolute Auto 500 /uL (0-900); Monocytes Percent Auto 3.3 % (3-14); Neutrophils Absolute Auto 14000 /uL (1500-7000); Neutrophils Percent Auto 94.1 % (50-75); Platelet Count 197 X10^3/uL (150-400); Red Blood Cell Count 3.86 X10^6/uL (4.0-5.2); White Blood Cell Count 14.9 X10^3/uL (4.5-11.0)
[2019-09-26] MEDS: SODIUM CHLORIDE 0.9% 1,000 ML 1000 ML IV ×2 (14:48→19:35)
--- NOTE | 2019-09-26 14:59 | DI.RAD.S_ITS ---
PROCEDURE: XR CHEST 2V INDICATIONS: fever TECHNIQUE: 2 views of the chest were acquired. COMPARISON: None. FINDINGS: Surgical changes and devices: None. Lungs and pleura: Lungs are clear. No pleural effusions or pneumothorax. Mediastinum: Mediastinal contours are normal. Heart size is normal. Bones and chest wall: No suspicious bony abnormalities. Soft tissues appear unremarkable. IMPRESSION: Negative chest. No acute cardiopulmonary process is evident. Dictated by: Sid Lomas M.D. on 09/26/2019 at 14:16 Approved by: Sid Lomas M.D. on 09/26/2019 at 14:16
[2019-09-26 15:02] LABS: Lactate (Lactic Acid) 1.5 mmol/L (0.7-2.1)
[2019-09-26 15:03] LABS: Alanine Aminotransferase 49 IU/L (<35); Albumin 3.2 g/dL (3.5-5.0); Albumin Globulin Ratio 1.1 (1.0-2.8); Alkaline Phosphatase 128 U/L (38-126); Aspartate Aminotransferase 54 IU/L (14-36); Bilirubin Total 0.5 mg/dL (0.2-1.3); Blood Urea Nitrogen 10 mg/dL (7-17); Carbon Dioxide 25 mmol/L (22-32); Chloride 104 mmol/L (98-107); Estimated Glomerular Filt Rate > 60.0 mL/min (>60); Globulin 2.8 g/dL (1.7-4.1); Glucose 120 mg/dL (70-100); Sodium 134 mmol/L (137-145)
[2019-09-26 15:09] LABS: HEMOLYSIS 57 (0-50); Potassium 3.5 mmol/L (3.4-5.1)
[2019-09-26] MEDS: ACETAMINOPHEN 325 MG TABLET 975 MG PO (15:27)
[2019-09-26 15:33] LABS: Procalcitonin 0.42 ng/mL (<0.5)
--- NOTE | 2019-09-26 16:04 | DI.US.S_ITS ---
PROCEDURE: US ABDOMEN LIMITED INDICATIONS: FEVER, ELEVATED LIVER FUNCTION TESTS TECHNIQUE: Real-time focused scanning was performed of the abdomen, with image documentation. COMPARISON: None. FINDINGS: Liver demonstrates normal size. There is echogenic portal triads. Gallbladder is mildly contracted. No gallstones. No gallbladder wall thickening, pericholecystic fluid or sonographic Cast's sign. Common duct is normal in caliber. Visualized pancreas is normal. No ascites. IMPRESSION: 1. Echogenic portal triads. This finding may be related to hepatitis. Recommend clinical correlation. 2. No gallstones or ultrasound findings to suggest acute cholecystitis. 3. Normal pancreas. Dictated by: Chris Subramanian M.D. on 09/26/2019 at 17:20 Approved by: Chris Subramanian M.D. on 09/26/2019 at 17:23
[2019-09-26 16:18] LABS: Appearance Urine UA CLEAR; Bilirubin Urine UA NEGATIVE (NEGATIVE); Color Urine UA YELLOW; Glucose Urine UA NEGATIVE (Negative); Ketones Urine UA NEGATIVE (NEGATIVE); Leukocyte Esterase Urine UA 1+ (NEGATIVE); Nitrite Urine UA NEGATIVE (Negative); Occult Blood Urine UA 3+ (Negative); Protein Urine UA NEGATIVE (Negative); Specific Gravity Urine UA <=1.005 (1.000-1.035); Urobilinogen Urine UA 0.2 E.U./dL (0.2)
[2019-09-26 16:27] LABS: Amorphous Sediment Urine 1+; RBC Urine 5-10/HPF (0-5/HPF); Squamous Epithelial Cell Urine 0-1 /HPF (0-5/HPF); WBC Urine 5-10/HPF (0-5/HPF)
[2019-09-26 16:28] LABS: Bacteria Urine Few (2-10); Culture Indicated Urine Specimen Cultured; Mucus Urine 1+ (Negative)
[2019-09-26 16:54] LABS: Influenza A and B by PCR Rapid Negative (Negative)
--- NOTE | 2019-09-26 18:18 | DI.CT.S_ITS ---
PROCEDURE: CT ANGIO CHEST PE PROTOCOL INDICATIONS: tachycardia, fever post- TECHNIQUE: After the administration of intravenous contrast, 2 mm thick sections acquired from the pulmonary apices to the posterior costophrenic angles. 3-dimensional maximum intensity projection (MIP) coronal and sagittal reformats were then acquired through the thorax. For radiation dose reduction, the following was used: automated exposure control, adjustment of mA and/or kV according to patient size. COMPARISON: None. FINDINGS: Image quality: Excellent. Pulmonary arteries: Pulmonary arteries are suboptimally opacified to evaluate the subsegmental branches. Pulmonary arteries are normal in size, and demonstrate no intraluminal filling defects to suggest central pulmonary embolism. Lungs and pleura: Lungs are clear. No pleural effusions or pneumothorax. Central and peripheral airways are patent. Mediastinum: Heart size is normal, without pericardial effusion. No mediastinal or hilar adenopathy. Thoracic aorta is normal in caliber and enhancement. Esophagus is normal in caliber, without hiatal hernia. Bones and chest wall: No suspicious bony lesions. Ribs and thoracic spine appear intact throughout. Thyroid gland is unremarkable. No axillary or supraclavicular adenopathy. Abdomen: Visualized upper abdominal solid organs appear normal in the early arterial phase of enhancement. IMPRESSION: Suboptimal opacification of pulmonary arteries. No central filling defects visualized to suggest pulmonary embolus; however the subsegmental branches are poorly characterized. Dictated by: Heather Cerrato M.D. on 09/26/2019 at 18:56 Approved by: Heather Cerrato M.D. on 09/26/2019 at 18:58
[2019-09-26] MEDS: IBUPROFEN 400 MG TABLET 800 MG PO (18:45)
--- NOTE | 2019-09-26 19:00 | ED.FEVER ---
HPI - Fever <Rebecca Alexandre MD - Last Filed: 09/28/19 05:41> General Chief Complaint: Fever Stated Complaint: postardum and 102.6 24 hours and fever chills Time Seen by Provider: 09/26/19 14:23 Source: patient Mode of arrival: Ambulatory Limitations: no limitations History of Present Illness HPI Narrative: Patient comes emergency department complaining of fever and chills that started yesterday. She states her temperatures have been up to 102.6. Patient is 4 days after a spontaneous vaginal delivery he the a jazz musician at [facility]. Patient states she has second-degree tear, but otherwise, had an uncomplicated and delivery. She states the baby is doing fine. The patient denies any systems specific symptoms. She states that her bleeding has been steady, and she has not noticed a particularly foul smell to her lochia. No dysuria. No new swelling in either of the patient's legs. Patient denies cough or shortness of breath. No chest pain. She states she has had some mild low abdominal cramping, but no abdominal pain. The cramping has not been getting worse recently. Patient states she is and somehow feels that the fever gets worse when she breast feeds, but states that she has not noticed any pain beyond sore nipples in her breasts and has not noticed any redness, fluctuance, or localized swelling. She states her milk started to come in yesterday. Patient states she has a history of resting tachycardia with heart rate normally around upper 90s to low 100s. She states she has seen a plate drying machine tender for this but that no one has been able to figure out why she is chronically tachycardic. Patient is otherwise healthy. Related Data Previous Rx's Medication Instructions Recorded cephalexin [Keflex] 500 mg PO BID 7 Days #14 cap 09/26/19 Allergies Allergy/AdvReac Type Severity Reaction Status Date / Time Penicillins Allergy Anaphylaxis Verified 09/27/19 13:14 Review of Systems <Rebecca Alexandre MD - Last Filed: 09/28/19 05:41> Constitutional Constitutional: Denies chills, Denies fatigue, Denies fever(s), Denies frequent falls, Denies lethargy and Denies weakness Eyes Eyes: Denies change in vision, Denies eye discharge, Denies irritation and Denies loss of vision ENT Ears, Nose, Mouth, and Throat: Denies change in voice, Denies dizziness, Denies neck pain, Denies sore throat and Denies throat swelling Cardiovascular Cardiovascular: Denies chest pain, Denies irregular heart rhythm, Denies lightheadedness, Denies palpitations, Denies dyspnea, Denies dyspnea on exertion and Denies orthopnea Respiratory Respiratory: Denies cough, Denies dyspnea, Denies dyspnea on exertion and Denies wheezing Gastrointestinal Gastrointestinal: Denies abdominal pain, Denies change in bowel habits, Denies diarrhea, Denies nausea and Denies vomiting Genitourinary Genitourinary: Denies hematuria, Denies flank pain, Denies urinary incontinence and Denies urinary urgency Musculoskeletal Musculoskeletal: Denies back pain, Denies muscle weakness, Denies neck pain, Denies numbness and Denies tingling Integumentary/Breasts Skin/Breast: Denies pruritus, Denies erythema, Denies rash and Denies wounds Neurologic Neurologic: Denies behavioral changes, Denies confusion, Denies dizziness, Denies frequent falls, Denies loss of vision, Denies numbness, Denies tingling and Denies weakness Psychiatric Psychiatric: Denies anxiety, Denies behavioral changes, Denies confusion, Denies depression, Denies homicidal ideation and Denies suicidal ideation Endocrine Endocrine: Denies fatigue, Denies flushing and Denies palpitations Hematologic/Lymphatic Hematologic/Lymphatic: Denies easy bruising Allergic/Immunologic Allergic/Immunologic: Denies urticaria, Denies throat swelling and Denies wheezing Patient History <Rebecca Alexandre MD - Last Filed: 09/28/19 05:41> Medical History History of multiple miscarriages (Chronic) Neurofibromatosis (Chronic) Thalassemia (Chronic) Surgical History History of dilatation and curettage (Resolved) History of loop electrical excision procedure (LEEP) (Resolved) Social History Smoking Status: Never smoker alcohol intake: current substance use type: does not use alcohol intake frequency: 0-2 drinks per day Substance Use Type: does not use Exam <Rebecca Alexandre MD - Last Filed: 09/28/19 05:41> Initial Vital Signs Initial Vital Signs: Vital Signs Temperature 100.9 F H 09/26/19 14:05 Pulse Rate 150 H 09/26/19 14:05 Respiratory Rate 22 09/26/19 14:05 Blood Pressure 92/63 09/26/19 14:05 Pulse Oximetry 97 09/26/19 14:05 Const General: cooperative and well developed Nutritional Appearance: well nourished Orientation: alert, awake, oriented x3 and not confused [facility] Head: normocephalic and atraumatic Ears: external ears normal Nose: external nose normal and No nasal discharge Face and sinus: face symmetric and No dry mucous membranes Mouth: oral mucosae normal and moist mucous membranes Teeth and gingiva: dentition normal Throat: tonsils normal and uvula midline Eyes General: appearance normal, both eyes and all related structures Eyelids: eyelids normal Conjunctivae: conjunctivae normal Sclera: sclerae normal Pupils: PERRL EOM: EOM intact bilaterally Neck Neck: normal visual inspection, trachea midline, No lymphadenopathy, No midline deformity and No JVD Lymphatic: No lymphedema Chest Chest: normal inspection of the chest Breast Palpation: normal palpation of the breasts, normal palpation of the axillae and other (No erythema of either breast. No fluctuance or induration.) Resp Effort & Inspection: normal respiratory effort, able to speak in complete sentences, no respiratory distress and no use of accessory muscles Auscultation: clear to auscultation bilaterally, no rales, no rhonchi and no wheezes Cardio Rate: tachycardic Rhythm: regular rhythm Heart Sounds: no click, no gallops, murmur systolic I/ and no rubs Pulses: normal peripheral pulses GI Inspection: non-distended Palpation: soft, no hepatosplenomegaly, No guarding, No pulsatile mass and No tender Auscultation: normal bowel sounds Back/Spine/Pelvis Back: No CVA tenderness Cervical Spine: cervical ROM normal and No pain with cervical ROM Thoracic/Lumbar Spine: thoracic and lumbar spine normal to inspection Skin General: no rashes or lesions noted, No jaundice and No petechiae Neuro General: alert, oriented x3, gait normal and no focal motor deficits Speech: speech normal Extrem General: full ROM, no clubbing, cyanosis or edema, no pedal edema and no calf tenderness Psych Appearance: well kempt Mental Status: mental status grossly normal Attitude: cooperative Thought Content: normal and suicidality Judgment: judgment good <Wilian Davis DO - Last Filed: 09/27/19 04:05> Initial Vital Signs Initial Vital Signs: Vital Signs Temperature 100.9 F H 09/26/19 14:05 Pulse Rate 150 H 09/26/19 14:05 Respiratory Rate 22 09/26/19 14:05 Blood Pressure 92/63 09/26/19 14:05 Pulse Oximetry 97 09/26/19 14:05 <Alicia Walsh DO - Last Filed: 09/27/19 10:21> Initial Vital Signs Initial Vital Signs: Vital Signs Temperature 100.9 F H 09/26/19 14:05 Pulse Rate 150 H 09/26/19 14:05 Respiratory Rate 22 09/26/19 14:05 Blood Pressure 92/63 09/26/19 14:05 Pulse Oximetry 97 09/26/19 14:05 Course <Rebecca Alexandre MD - Last Filed: 09/28/19 05:41> Course Course Narrative: The patient was actually fairly well-appearing, but her high fever and tachycardia were concerning. The patient was given a normal saline bolus in the emergency department, as well as doses of ibuprofen and Tylenol. She was worked up with laboratory studies, which showed a moderately elevated white blood cell count and a normal lactate and procalcitonin. Her urinalysis was mildly positive, though I was concerned that this did not seem to be positive enough to be the cause of such fever and tachycardia. Chest x-ray was unremarkable. I did feel the patient should have a CT angio of the chest to be sure she did not have a pulmonary embolism. The patient was signed out to Dr. Thomas Davis pending CTA of the chest, re-evaluation, and final disposition. Orders Ordered: Discontinued Medications Acetaminophen (Tylenol) 975 mg PO NOW ONE Stop: 09/26/19 15:21 Last Admin: 09/26/19 15:27 Dose: 975 mg Documented by: RACHELLEANCE Cephalexin HCl (Keflex) 500 mg PO NOW ONE Stop: 09/26/19 19:40 Last Admin: 09/26/19 19:50 Dose: 500 mg Documented by: KDCONCEPCION Sodium Chloride (Normal Saline 0.9%) 1,000 mls @ 1,000 mls/hr IV BOLUS ONE Stop: 09/26/19 15:13 Last Infusion: 09/26/19 17:03 Dose: 0 mls/hr Documented by: Admin: 09/26/19 14:48 Dose: 1,000 mls/hr Documented by: SAILAJA Sodium Chloride (Normal Saline 0.9%) 1,000 mls @ 1,000 mls/hr IV BOLUS ONE Stop: 09/26/19 20:28 Last Infusion: 09/26/19 20:35 Dose: 0 mls/hr Documented by: Admin: 09/26/19 19:35 Dose: 1,000 mls/hr Documented by: SAILAJA Ibuprofen (Advil) 800 mg PO NOW ONE Stop: 09/26/19 18:05 Last Admin: 09/26/19 18:45 Dose: 800 mg Documented by: SAILAAJ Vital Signs Vital signs: Vital Signs - 8 hr 09/26/19 18:09 09/26/19 18:11 09/26/19 18:15 Temperature 100.6 F H Pulse Rate 126 H 136 H Respiratory Rate 22 23 Blood Pressure [Right Arm] 91/57 L 98/57 L Pulse Oximetry 98 97 09/26/19 18:45 09/26/19 19:23 09/26/19 19:24 Temperature 102.1 F H 100.5 F H 100.5 F H Pulse Rate 143 H Respiratory Rate 21 Blood Pressure [Right Arm] 114/68 Pulse Oximetry 99 09/26/19 20:07 09/26/19 20:33 09/26/19 21:00 Temperature 99.7 F H Pulse Rate 124 H 116 H 117 H Respiratory Rate 20 23 19 Blood Pressure [Right Arm] 107/61 104/66 97/60 Pulse Oximetry 96 95 99 <Wilian Davis DO - Last Filed: 09/27/19 04:05> Orders Ordered: Discontinued Medications Acetaminophen (Tylenol) 975 mg PO NOW ONE Stop: 09/26/19 15:21 Last Admin: 09/26/19 15:27 Dose: 975 mg Documented by: MARCIN Cephalexin HCl (Keflex) 500 mg PO NOW ONE Stop: 09/26/19 19:40 Last Admin: 09/26/19 19:50 Dose: 500 mg Documented by: SAILAJA Sodium Chloride (Normal Saline 0.9%) 1,000 mls @ 1,000 mls/hr IV BOLUS ONE Stop: 09/26/19 15:13 Last Infusion: 09/26/19 17:03 Dose: 0 mls/hr Documented by: Admin: 09/26/19 14:48 Dose: 1,000 mls/hr Documented by: SAILAJA Sodium Chloride (Normal Saline 0.9%) 1,000 mls @ 1,000 mls/hr IV BOLUS ONE Stop: 09/26/19 20:28 Last Infusion: 09/26/19 20:35 Dose: 0 mls/hr Documented by: Admin: 09/26/19 19:35 Dose: 1,000 mls/hr Documented by: SAILAJA Ibuprofen (Advil) 800 mg PO NOW ONE Stop: 09/26/19 18:05 Last Admin: 09/26/19 18:45 Dose: 800 mg Documented by: SAILAJA Vital Signs Vital signs: Vital Signs - 8 hr 09/26/19 18:09 09/26/19 18:11 09/26/19 18:15 Temperature 100.6 F H Pulse Rate 126 H 136 H Respiratory Rate 22 23 Blood Pressure [Right Arm] 91/57 L 98/57 L Pulse Oximetry 98 97 09/26/19 18:45 09/26/19 19:23 09/26/19 19:24 Temperature 102.1 F H 100.5 F H 100.5 F H Pulse Rate 143 H Respiratory Rate 21 Blood Pressure [Right Arm] 114/68 Pulse Oximetry 99 09/26/19 20:07 09/26/19 20:33 09/26/19 21:00 Temperature 99.7 F H Pulse Rate 124 H 116 H 117 H Respiratory Rate 20 23 19 Blood Pressure [Right Arm] 107/61 104/66 97/60 Pulse Oximetry 96 95 99 <Alicia Walsh, - Last Filed: 09/27/19 10:21> Orders Ordered: Discontinued Medications Acetaminophen (Tylenol) 975 mg PO NOW ONE Stop: 09/26/19 15:21 Last Admin: 09/26/19 15:27 Dose: 975 mg Documented by: MARCIN Cephalexin HCl (Keflex) 500 mg PO NOW ONE Stop: 09/26/19 19:40 Last Admin: 09/26/19 19:50 Dose: 500 mg Documented by: SAILAJA Sodium Chloride (Normal Saline 0.9%) 1,000 mls @ 1,000 mls/hr IV BOLUS ONE Stop: 09/26/19 15:13 Last Infusion: 09/26/19 17:03 Dose: 0 mls/hr Documented by: Admin: 09/26/19 14:48 Dose: 1,000 mls/hr Documented by: SAILAJA Sodium Chloride (Normal Saline 0.9%) 1,000 mls @ 1,000 mls/hr IV BOLUS ONE Stop: 09/26/19 20:28 Last Infusion: 09/26/19 20:35 Dose: 0 mls/hr Documented by: Admin: 09/26/19 19:35 Dose: 1,000 mls/hr Documented by: SAILAJA Ibuprofen (Advil) 800 mg PO NOW ONE Stop: 09/26/19 18:05 Last Admin: 09/26/19 18:45 Dose: 800 mg Documented by: SAILAJA Vital Signs Vital signs: Vital Signs - 8 hr 09/26/19 18:09 09/26/19 18:11 09/26/19 18:15 Temperature 100.6 F H Pulse Rate 126 H 136 H Respiratory Rate 22 23 Blood Pressure [Right Arm] 91/57 L 98/57 L Pulse Oximetry 98 97 09/26/19 18:45 09/26/19 19:23 09/26/19 19:24 Temperature 102.1 F H 100.5 F H 100.5 F H Pulse Rate 143 H Respiratory Rate 21 Blood Pressure [Right Arm] 114/68 Pulse Oximetry 99 09/26/19 20:07 09/26/19 20:33 09/26/19 21:00 Temperature 99.7 F H Pulse Rate 124 H 116 H 117 H Respiratory Rate 20 23 19 Blood Pressure [Right Arm] 107/61 104/66 97/60 Pulse Oximetry 96 95 99 MDM - Fever <Rebecca Alexandre MD - Last Filed: 09/28/19 05:41> Medical Records Attestation: I reviewed the patient's medical records. Lab Data Attestation: I reviewed the patient's lab results. Result diagrams: 09/26/19 14:33 09/26/19 14:33 Labs: Lab Results 09/26/19 09/26/19 09/26/19 Range/Units 14:33 14:33 14:33 WBC 14.9 H (4.5-11.0) X10^3/uL RBC 3.86 L (4.0-5.2) X10^6/uL Hgb 9.4 L (12.0-16.0) g/dL Hct 28.6 L (36-46) % MCV 74.0 L (80-100) fL MCH 24.3 L (26-34) PG MCHC 32.8 (30-36) % RDW 16.0 H (11.6-14.8) % Plt Count 197 (150-400) X10^3/uL Neut % (Auto) 94.1 H (50-75) % Lymph % (Auto) 2.2 L (25-40) % [place] % (Auto) 3.3 (3-14) % Eos % (Auto) 0.3 L (2-4) % Baso % (Auto) 0.1 (0-2) % Neut # (Auto) 42628 H (2952-8624) /uL Lymph # (Auto) 300 L (7255-0227) /uL [place] # (Auto) 500 (0-900) /uL Eos # (Auto) 0 (0-450) /uL Baso # (Auto) 0 (0-100) /uL Sodium 134 L (137-145) mmol/L Potassium 3.5 (3.4-5.1) mmol/L Chloride 104 (98-107) mmol/L Carbon Dioxide 25 (22-32) mmol/L BUN 10 (7-17) mg/dL Creatinine 0.50 L (0.52-1.04) mg/dL Estimated GFR > 60.0 (>60) mL/min BUN/Creatinine Ratio 20.0 (6-22) Glucose 120 H (70-100) mg/dL Lactate (0.7-2.1) mmol/L Calcium 9.0 (8.4-10.2) mg/dL Total Bilirubin 0.5 (0.2-1.3) mg/dL AST 54 H (14-36) IU/L ALT 49 H (<35) IU/L Alkaline Phosphatase 128 H (38-126) U/L Total Protein 6.0 L (6.3-8.2) g/dL Albumin 3.2 L (3.5-5.0) g/dL Globulin 2.8 (1.7-4.1) g/dL Albumin/Globulin Ratio 1.1 (1.0-2.8) Procalcitonin 0.42 (<0.5) ng/mL Urine Color Urine Appearance Urine pH (4.5-8.0) Ur Specific [place] (1.000-1.035) Urine Protein (Negative) Urine Glucose (UA) (Negative) g/dL Urine Ketones (NEGATIVE) Urine Occult Blood (Negative) Urine Nitrate (Negative) Urine Bilirubin (NEGATIVE) Urine Urobilinogen (0.2) E.U./dL Ur Leukocyte Esterase (NEGATIVE) Urine RBC (0-5/HPF) Urine WBC (0-5/HPF) Ur Squamous Epith Cells (0-5/HPF) Amorphous Sediment Urine Bacteria (None) Urine Mucus (Negative) Ur Culture Indicated? A. baumannii (PCR) (Not Detect) Aster albicans (PCR) (Not Detect) C. glabrata (PCR) (Not Detect) C. krusei (PCR) (Not Detect) C. parapsilosis (PCR) (Not Detect) C. tropicalis (PCR) (Not Detect) Enterobacteriac sp PCR (Not Detect) E. cloacae complex PCR (Not Detect) Enterococcus sp PCR (Not Detect) E. coli (PCR) (Not Detect) H. influenzae (PCR) (Not Detect) Influenza A & B (PCR) (Negative) Klebsiella oxytoca PCR (Not Detect) Klebsiella pneumoniae (Not Detect) List. monocytogenes PCR (Not Detect) N. meningitidis (PCR) (Not Detect) Proteus species (PCR) (Not Detect) Serratia marcescens PCR (Not Detect) Staphylococcus sp PCR (Not Detect) Staph aureus (PCR) (Not Detect) mecA-Methicil Res Gene (Not Detect) Streptococcus sp PCR (Not Detect) Group A Strep (PCR) (Not Detect) Strep agalactiae (PCR) (Not Detect) Strep pneumoniae (PCR) (Not Detect) P. aeruginosa (PCR) (Not Detect) Kailyn/B-Vanco Res Genes (Not Detect) KPC-Carbap Res Gene PCR (Not Detect) 09/26/19 09/26/19 09/26/19 Range/Units 14:33 16:10 16:32 WBC (4.5-11.0) X10^3/uL RBC (4.0-5.2) X10^6/uL Hgb (12.0-16.0) g/dL Hct (36-46) % MCV (80-100) fL MCH (26-34) PG MCHC (30-36) % RDW (11.6-14.8) % Plt Count (150-400) X10^3/uL Neut % (Auto) (50-75) % Lymph % (Auto) (25-40) % [place] % (Auto) (3-14) % Eos % (Auto) (2-4) % Baso % (Auto) (0-2) % Neut # (Auto) (5153-8674) /uL Lymph # (Auto) (9274-9334) /uL [place] # (Auto) (0-900) /uL Eos # (Auto) (0-450) /uL Baso # (Auto) (0-100) /uL Sodium (137-145) mmol/L Potassium (3.4-5.1) mmol/L Chloride (98-107) mmol/L Carbon Dioxide (22-32) mmol/L BUN (7-17) mg/dL Creatinine (0.52-1.04) mg/dL Estimated GFR (>60) mL/min BUN/Creatinine Ratio (6-22) Glucose (70-100) mg/dL Lactate 1.5 (0.7-2.1) mmol/L Calcium (8.4-10.2) mg/dL Total Bilirubin (0.2-1.3) mg/dL AST (14-36) IU/L ALT (<35) IU/L Alkaline Phosphatase (38-126) U/L Total Protein (6.3-8.2) g/dL Albumin (3.5-5.0) g/dL Globulin (1.7-4.1) g/dL Albumin/Globulin Ratio (1.0-2.8) Procalcitonin (<0.5) ng/mL Urine Color Yellow Urine Appearance Clear Urine pH 6.0 (4.5-8.0) Ur Specific [place] <=1.005 (1.000-1.035) Urine Protein Negative (Negative) Urine Glucose (UA) Negative (Negative) g/dL Urine Ketones Negative (NEGATIVE) Urine Occult Blood 3+ H (Negative) Urine Nitrate Negative (Negative) Urine Bilirubin Negative (NEGATIVE) Urine Urobilinogen 0.2 (0.2) E.U./dL Ur Leukocyte Esterase 1+ H (NEGATIVE) Urine RBC 5-10/hpf H (0-5/HPF) Urine WBC 5-10/hpf H (0-5/HPF) Ur Squamous Epith Cells 0-1 /hpf (0-5/HPF) Amorphous Sediment 1+ Urine Bacteria Few (2-10) H (None) Urine Mucus 1+ H (Negative) Ur Culture Indicated? Specimen cultured A. baumannii (PCR) (Not Detect) Aster albicans (PCR) (Not Detect) C. glabrata (PCR) (Not Detect) C. krusei (PCR) (Not Detect) C. parapsilosis (PCR) (Not Detect) C. tropicalis (PCR) (Not Detect) Enterobacteriac sp PCR (Not Detect) E. cloacae complex PCR (Not Detect) Enterococcus sp PCR (Not Detect) E. coli (PCR) (Not Detect) H. influenzae (PCR) (Not Detect) Influenza A & B (PCR) Negative (Negative) Klebsiella oxytoca PCR (Not Detect) Klebsiella pneumoniae (Not Detect) List. monocytogenes PCR (Not Detect) N. meningitidis (PCR) (Not Detect) Proteus species (PCR) (Not Detect) Serratia marcescens PCR (Not Detect) Staphylococcus sp PCR (Not Detect) Staph aureus (PCR) (Not Detect) mecA-Methicil Res Gene (Not Detect) Streptococcus sp PCR (Not Detect) Group A Strep (PCR) (Not Detect) Strep agalactiae (PCR) (Not Detect) Strep pneumoniae (PCR) (Not Detect) P. aeruginosa (PCR) (Not Detect) Kailyn/B-Vanco Res Genes (Not Detect) KPC-Carbap Res Gene PCR (Not Detect) 09/27/19 Range/Units 14:52 WBC (4.5-11.0) X10^3/uL RBC (4.0-5.2) X10^6/uL Hgb (12.0-16.0) g/dL Hct (36-46) % MCV (80-100) fL MCH (26-34) PG MCHC (30-36) % RDW (11.6-14.8) % Plt Count (150-400) X10^3/uL Neut % (Auto) (50-75) % Lymph % (Auto) (25-40) % [place] % (Auto) (3-14) % Eos % (Auto) (2-4) % Baso % (Auto) (0-2) % Neut # (Auto) (7560-8669) /uL Lymph # (Auto) (7976-9156) /uL [place] # (Auto) (0-900) /uL Eos # (Auto) (0-450) /uL Baso # (Auto) (0-100) /uL Sodium (137-145) mmol/L Potassium (3.4-5.1) mmol/L Chloride (98-107) mmol/L Carbon Dioxide (22-32) mmol/L BUN (7-17) mg/dL Creatinine (0.52-1.04) mg/dL Estimated GFR (>60) mL/min BUN/Creatinine Ratio (6-22) Glucose (70-100) mg/dL Lactate (0.7-2.1) mmol/L Calcium (8.4-10.2) mg/dL Total Bilirubin (0.2-1.3) mg/dL AST (14-36) IU/L ALT (<35) IU/L Alkaline Phosphatase (38-126) U/L Total Protein (6.3-8.2) g/dL Albumin (3.5-5.0) g/dL Globulin (1.7-4.1) g/dL Albumin/Globulin Ratio (1.0-2.8) Procalcitonin (<0.5) ng/mL Urine Color Urine Appearance Urine pH (4.5-8.0) Ur Specific [place] (1.000-1.035) Urine Protein (Negative) Urine Glucose (UA) (Negative) g/dL Urine Ketones (NEGATIVE) Urine Occult Blood (Negative) Urine Nitrate (Negative) Urine Bilirubin (NEGATIVE) Urine Urobilinogen (0.2) E.U./dL Ur Leukocyte Esterase (NEGATIVE) Urine RBC (0-5/HPF) Urine WBC (0-5/HPF) Ur Squamous Epith Cells (0-5/HPF) Amorphous Sediment Urine Bacteria (None) Urine Mucus (Negative) Ur Culture Indicated? A. baumannii (PCR) Not detected (Not Detect) Aster albicans (PCR) Not detected (Not Detect) C. glabrata (PCR) Not detected (Not Detect) C. krusei (PCR) Not detected (Not Detect) C. parapsilosis (PCR) Not detected (Not Detect) C. tropicalis (PCR) Not detected (Not Detect) Enterobacteriac sp PCR Not detected (Not Detect) E. cloacae complex PCR Not detected (Not Detect) Enterococcus sp PCR Not detected (Not Detect) E. coli (PCR) Not detected (Not Detect) H. influenzae (PCR) Not detected (Not Detect) Influenza A & B (PCR) (Negative) Klebsiella oxytoca PCR Not detected (Not Detect) Klebsiella pneumoniae Not detected (Not Detect) List. monocytogenes PCR Not detected (Not Detect) N. meningitidis (PCR) Not detected (Not Detect) Proteus species (PCR) Not detected (Not Detect) Serratia marcescens PCR Not detected (Not Detect) Staphylococcus sp PCR Not detected (Not Detect) Staph aureus (PCR) Not detected (Not Detect) mecA-Methicil Res Gene Not detected (Not Detect) Streptococcus sp PCR Detected H (Not Detect) Group A Strep (PCR) Detected H (Not Detect) Strep agalactiae (PCR) Not detected (Not Detect) Strep pneumoniae (PCR) Not detected (Not Detect) P. aeruginosa (PCR) Not detected (Not Detect) Kailyn/B-Vanco Res Genes Not detected (Not Detect) KPC-Carbap Res Gene PCR Not detected (Not Detect) Point of Care Testing Rapid Strep A Negative <Wilian Davis DO - Last Filed: 09/27/19 04:05> Lab Data Labs: Lab Results 09/26/19 09/26/19 09/26/19 Range/Units 14:33 14:33 14:33 WBC 14.9 H (4.5-11.0) X10^3/uL RBC 3.86 L (4.0-5.2) X10^6/uL Hgb 9.4 L (12.0-16.0) g/dL Hct 28.6 L (36-46) % MCV 74.0 L (80-100) fL MCH 24.3 L (26-34) PG MCHC 32.8 (30-36) % RDW 16.0 H (11.6-14.8) % Plt Count 197 (150-400) X10^3/uL Neut % (Auto) 94.1 H (50-75) % Lymph % (Auto) 2.2 L (25-40) % [place] % (Auto) 3.3 (3-14) % Eos % (Auto) 0.3 L (2-4) % Baso % (Auto) 0.1 (0-2) % Neut # (Auto) 78927 H (9970-7307) /uL Lymph # (Auto) 300 L (9745-5045) /uL [place] # (Auto) 500 (0-900) /uL Eos # (Auto) 0 (0-450) /uL Baso # (Auto) 0 (0-100) /uL Sodium 134 L (137-145) mmol/L Potassium 3.5 (3.4-5.1) mmol/L Chloride 104 (98-107) mmol/L Carbon Dioxide 25 (22-32) mmol/L BUN 10 (7-17) mg/dL Creatinine 0.50 L (0.52-1.04) mg/dL Estimated GFR > 60.0 (>60) mL/min BUN/Creatinine Ratio 20.0 (6-22) Glucose 120 H (70-100) mg/dL Lactate (0.7-2.1) mmol/L Calcium 9.0 (8.4-10.2) mg/dL Total Bilirubin 0.5 (0.2-1.3) mg/dL AST 54 H (14-36) IU/L ALT 49 H (<35) IU/L Alkaline Phosphatase 128 H (38-126) U/L Total Protein 6.0 L (6.3-8.2) g/dL Albumin 3.2 L (3.5-5.0) g/dL Globulin 2.8 (1.7-4.1) g/dL Albumin/Globulin Ratio 1.1 (1.0-2.8) Procalcitonin 0.42 (<0.5) ng/mL Urine Color Urine Appearance Urine pH (4.5-8.0) Ur Specific [place] (1.000-1.035) Urine Protein (Negative) Urine Glucose (UA) (Negative) g/dL Urine Ketones (NEGATIVE) Urine Occult Blood (Negative) Urine Nitrate (Negative) Urine Bilirubin (NEGATIVE) Urine Urobilinogen (0.2) E.U./dL Ur Leukocyte Esterase (NEGATIVE) Urine RBC (0-5/HPF) Urine WBC (0-5/HPF) Ur Squamous Epith Cells (0-5/HPF) Amorphous Sediment Urine Bacteria (None) Urine Mucus (Negative) Ur Culture Indicated? A. baumannii (PCR) (Not Detect) Aster albicans (PCR) (Not Detect) C. glabrata (PCR) (Not Detect) C. krusei (PCR) (Not Detect) C. parapsilosis (PCR) (Not Detect) C. tropicalis (PCR) (Not Detect) Enterobacteriac sp PCR (Not Detect) E. cloacae complex PCR (Not Detect) Enterococcus sp PCR (Not Detect) E. coli (PCR) (Not Detect) H. influenzae (PCR) (Not Detect) Influenza A & B (PCR) (Negative) Klebsiella oxytoca PCR (Not Detect) Klebsiella pneumoniae (Not Detect) List. monocytogenes PCR (Not Detect) N. meningitidis (PCR) (Not Detect) Proteus species (PCR) (Not Detect) Serratia marcescens PCR (Not Detect) Staphylococcus sp PCR (Not Detect) Staph aureus (PCR) (Not Detect) mecA-Methicil Res Gene (Not Detect) Streptococcus sp PCR (Not Detect) Group A Strep (PCR) (Not Detect) Strep agalactiae (PCR) (Not Detect) Strep pneumoniae (PCR) (Not Detect) P. aeruginosa (PCR) (Not Detect) [place]/B-Vanco Res Genes (Not Detect) KPC-Carbap Res Gene PCR (Not Detect) 09/26/19 09/26/19 09/26/19 Range/Units 14:33 16:10 16:32 WBC (4.5-11.0) X10^3/uL RBC (4.0-5.2) X10^6/uL Hgb (12.0-16.0) g/dL Hct (36-46) % MCV (80-100) fL MCH (26-34) PG MCHC (30-36) % RDW (11.6-14.8) % Plt Count (150-400) X10^3/uL Neut % (Auto) (50-75) % Lymph % (Auto) (25-40) % [place] % (Auto) (3-14) % Eos % (Auto) (2-4) % Baso % (Auto) (0-2) % Neut # (Auto) (9254-4030) /uL Lymph # (Auto) (3482-4145) /uL [place] # (Auto) (0-900) /uL Eos # (Auto) (0-450) /uL Baso # (Auto) (0-100) /uL Sodium (137-145) mmol/L Potassium (3.4-5.1) mmol/L Chloride (98-107) mmol/L Carbon Dioxide (22-32) mmol/L BUN (7-17) mg/dL Creatinine (0.52-1.04) mg/dL Estimated GFR (>60) mL/min BUN/Creatinine Ratio (6-22) Glucose (70-100) mg/dL Lactate 1.5 (0.7-2.1) mmol/L Calcium (8.4-10.2) mg/dL Total Bilirubin (0.2-1.3) mg/dL AST (14-36) IU/L ALT (<35) IU/L Alkaline Phosphatase (38-126) U/L Total Protein (6.3-8.2) g/dL Albumin (3.5-5.0) g/dL Globulin (1.7-4.1) g/dL Albumin/Globulin Ratio (1.0-2.8) Procalcitonin (<0.5) ng/mL Urine Color Yellow Urine Appearance Clear Urine pH 6.0 (4.5-8.0) Ur Specific [place] <=1.005 (1.000-1.035) Urine Protein Negative (Negative) Urine Glucose (UA) Negative (Negative) g/dL Urine Ketones Negative (NEGATIVE) Urine Occult Blood 3+ H (Negative) Urine Nitrate Negative (Negative) Urine Bilirubin Negative (NEGATIVE) Urine Urobilinogen 0.2 (0.2) E.U./dL Ur Leukocyte Esterase 1+ H (NEGATIVE) Urine RBC 5-10/hpf H (0-5/HPF) Urine WBC 5-10/hpf H (0-5/HPF) Ur Squamous Epith Cells 0-1 /hpf (0-5/HPF) Amorphous Sediment 1+ Urine Bacteria Few (2-10) H (None) Urine Mucus 1+ H (Negative) Ur Culture Indicated? Specimen cultured A. baumannii (PCR) (Not Detect) Aster albicans (PCR) (Not Detect) C. glabrata (PCR) (Not Detect) C. krusei (PCR) (Not Detect) C. parapsilosis (PCR) (Not Detect) C. tropicalis (PCR) (Not Detect) Enterobacteriac sp PCR (Not Detect) E. cloacae complex PCR (Not Detect) Enterococcus sp PCR (Not Detect) E. coli (PCR) (Not Detect) H. influenzae (PCR) (Not Detect) Influenza A & B (PCR) Negative (Negative) Klebsiella oxytoca PCR (Not Detect) Klebsiella pneumoniae (Not Detect) List. monocytogenes PCR (Not Detect) N. meningitidis (PCR) (Not Detect) Proteus species (PCR) (Not Detect) Serratia marcescens PCR (Not Detect) Staphylococcus sp PCR (Not Detect) Staph aureus (PCR) (Not Detect) mecA-Methicil Res Gene (Not Detect) Streptococcus sp PCR (Not Detect) Group A Strep (PCR) (Not Detect) Strep agalactiae (PCR) (Not Detect) Strep pneumoniae (PCR) (Not Detect) P. aeruginosa (PCR) (Not Detect) Kailyn/B-Vanco Res Genes (Not Detect) KPC-Carbap Res Gene PCR (Not Detect) 09/27/19 Range/Units 14:52 WBC (4.5-11.0) X10^3/uL RBC (4.0-5.2) X10^6/uL Hgb (12.0-16.0) g/dL Hct (36-46) % MCV (80-100) fL MCH (26-34) PG MCHC (30-36) % RDW (11.6-14.8) % Plt Count (150-400) X10^3/uL Neut % (Auto) (50-75) % Lymph % (Auto) (25-40) % [place] % (Auto) (3-14) % Eos % (Auto) (2-4) % Baso % (Auto) (0-2) % Neut # (Auto) (7680-3564) /uL Lymph # (Auto) (1381-1883) /uL [place] # (Auto) (0-900) /uL Eos # (Auto) (0-450) /uL Baso # (Auto) (0-100) /uL Sodium (137-145) mmol/L Potassium (3.4-5.1) mmol/L Chloride (98-107) mmol/L Carbon Dioxide (22-32) mmol/L BUN (7-17) mg/dL Creatinine (0.52-1.04) mg/dL Estimated GFR (>60) mL/min BUN/Creatinine Ratio (6-22) Glucose (70-100) mg/dL Lactate (0.7-2.1) mmol/L Calcium (8.4-10.2) mg/dL Total Bilirubin (0.2-1.3) mg/dL AST (14-36) IU/L ALT (<35) IU/L Alkaline Phosphatase (38-126) U/L Total Protein (6.3-8.2) g/dL Albumin (3.5-5.0) g/dL Globulin (1.7-4.1) g/dL Albumin/Globulin Ratio (1.0-2.8) Procalcitonin (<0.5) ng/mL Urine Color Urine Appearance Urine pH (4.5-8.0) Ur Specific [place] (1.000-1.035) Urine Protein (Negative) Urine Glucose (UA) (Negative) g/dL Urine Ketones (NEGATIVE) Urine Occult Blood (Negative) Urine Nitrate (Negative) Urine Bilirubin (NEGATIVE) Urine Urobilinogen (0.2) E.U./dL Ur Leukocyte Esterase (NEGATIVE) Urine RBC (0-5/HPF) Urine WBC (0-5/HPF) Ur Squamous Epith Cells (0-5/HPF) Amorphous Sediment Urine Bacteria (None) Urine Mucus (Negative) Ur Culture Indicated? A. baumannii (PCR) Not detected (Not Detect) Aster albicans (PCR) Not detected (Not Detect) C. glabrata (PCR) Not detected (Not Detect) C. krusei (PCR) Not detected (Not Detect) C. parapsilosis (PCR) Not detected (Not Detect) C. tropicalis (PCR) Not detected (Not Detect) Enterobacteriac sp PCR Not detected (Not Detect) E. cloacae complex PCR Not detected (Not Detect) Enterococcus sp PCR Not detected (Not Detect) E. coli (PCR) Not detected (Not Detect) H. influenzae (PCR) Not detected (Not Detect) Influenza A & B (PCR) (Negative) Klebsiella oxytoca PCR Not detected (Not Detect) Klebsiella pneumoniae Not detected (Not Detect) List. monocytogenes PCR Not detected (Not Detect) N. meningitidis (PCR) Not detected (Not Detect) Proteus species (PCR) Not detected (Not Detect) Serratia marcescens PCR Not detected (Not Detect) Staphylococcus sp PCR Not detected (Not Detect) Staph aureus (PCR) Not detected (Not Detect) mecA-Methicil Res Gene Not detected (Not Detect) Streptococcus sp PCR Detected H (Not Detect) Group A Strep (PCR) Detected H (Not Detect) Strep agalactiae (PCR) Not detected (Not Detect) Strep pneumoniae (PCR) Not detected (Not Detect) P. aeruginosa (PCR) Not detected (Not Detect) Kailyn/B-Vanco Res Genes Not detected (Not Detect) KPC-Carbap Res Gene PCR Not detected (Not Detect) Point of Care Testing Rapid Strep A Negative Imaging Data CT scan - chest: Radiologist's impression: [place] [address] CT Scan Report Signed Patient: Hayden Rosario#: [id number] : 1990Acct:[id number] Age/Sex: 29 / FDate of Service: 09/26/19 Loc: ED Accession Number: [id number] Procedure: CT angio chest PE protocol Ordering Provider: Rebecca Alexandre MD PROCEDURE: CT ANGIO CHEST PE PROTOCOL INDICATIONS: tachycardia, fever post- TECHNIQUE: After the administration of intravenous contrast, 2 mm thick sections acquired from the pulmonary apices to the posterior costophrenic angles. 3-dimensional maximum intensity projection (MIP) coronal and sagittal reformats were then acquired through the thorax. For radiation dose reduction, the following was used: automated exposure control, adjustment of mA and/or kV according to patient size. COMPARISON: None. FINDINGS: Image quality: Excellent. Pulmonary arteries: Pulmonary arteries are suboptimally opacified to evaluate the subsegmental branches. Pulmonary arteries are normal in size, and demonstrate no intraluminal filling defects to suggest central pulmonary embolism. Lungs and pleura: Lungs are clear. No pleural effusions or pneumothorax. Central and peripheral airways are patent. Mediastinum: Heart size is normal, without pericardial effusion. No mediastinal or hilar adenopathy. Thoracic aorta is normal in caliber and enhancement. Esophagus is normal in caliber, without hiatal hernia. Bones and chest wall: No suspicious bony lesions. Ribs and thoracic spine appear intact throughout. Thyroid gland is unremarkable. No axillary or supraclavicular adenopathy. Abdomen: Visualized upper abdominal solid organs appear normal in the early arterial phase of enhancement. IMPRESSION: Suboptimal opacification of pulmonary arteries. No central filling defects visualized to suggest pulmonary embolus; however the subsegmental branches are poorly characterized. Dictated by: Heather Cerrato M.D. on 09/26/2019 at 18:56 Approved by: Heather Cerrato M.D. on 09/26/2019 at 18:58 MDM Narrative Medical decision making narrative: Dr Davis: Received turned over from day provider. Reviewed patient's history and physical and labs. Perform my own independent exam. Patient's CT scan shows no signs of pulmonary embolism. She was febrile and tachycardic upon arrival. Her urinalysis is somewhat consistent with a urinary tract infection. She does have some dysuria that has been in place over the past day or so. She is 4 days . She does have some lower abdominal tenderness however I feel that this is more likely related to her recent delivery rather than endometritis. She did not have an epidural or spinal which makes spinal epidural abscess unlikely. Her CT of the chest shows no signs of pneumonia. She has no skin changes consistent with cellulitis. She is breast-feeding however her reported breast exam is not consistent with mastitis. Her heart rate did improve after a 2nd L of fluids. Her blood pressure also improved. She was able to tolerate oral antibiotics for treatment of the urinary tract infection. I suspect that her symptoms are related to the urinary tract infection. Given the fact that she is tolerating oral intake and consolidate the antibiotics of feel that a trial of home oral antibiotics is not unreasonable in her case. Patient was given return precautions and follow-up instructions. She expressed understanding and agreement plan. <Alicia Walsh, - Last Filed: 09/27/19 10:21> Lab Data Labs: Lab Results 09/26/19 09/26/19 09/26/19 Range/Units 14:33 14:33 14:33 WBC 14.9 H (4.5-11.0) X10^3/uL RBC 3.86 L (4.0-5.2) X10^6/uL Hgb 9.4 L (12.0-16.0) g/dL Hct 28.6 L (36-46) % MCV 74.0 L (80-100) fL MCH 24.3 L (26-34) PG MCHC 32.8 (30-36) % RDW 16.0 H (11.6-14.8) % Plt Count 197 (150-400) X10^3/uL Neut % (Auto) 94.1 H (50-75) % Lymph % (Auto) 2.2 L (25-40) % [place] % (Auto) 3.3 (3-14) % Eos % (Auto) 0.3 L (2-4) % Baso % (Auto) 0.1 (0-2) % Neut # (Auto) 05794 H (8948-9584) /uL Lymph # (Auto) 300 L (7400-6349) /uL [place] # (Auto) 500 (0-900) /uL Eos # (Auto) 0 (0-450) /uL Baso # (Auto) 0 (0-100) /uL Sodium 134 L (137-145) mmol/L Potassium 3.5 (3.4-5.1) mmol/L Chloride 104 (98-107) mmol/L Carbon Dioxide 25 (22-32) mmol/L BUN 10 (7-17) mg/dL Creatinine 0.50 L (0.52-1.04) mg/dL Estimated GFR > 60.0 (>60) mL/min BUN/Creatinine Ratio 20.0 (6-22) Glucose 120 H (70-100) mg/dL Lactate (0.7-2.1) mmol/L Calcium 9.0 (8.4-10.2) mg/dL Total Bilirubin 0.5 (0.2-1.3) mg/dL AST 54 H (14-36) IU/L ALT 49 H (<35) IU/L Alkaline Phosphatase 128 H (38-126) U/L Total Protein 6.0 L (6.3-8.2) g/dL Albumin 3.2 L (3.5-5.0) g/dL Globulin 2.8 (1.7-4.1) g/dL Albumin/Globulin Ratio 1.1 (1.0-2.8) Procalcitonin 0.42 (<0.5) ng/mL Urine Color Urine Appearance Urine pH (4.5-8.0) Ur Specific [place] (1.000-1.035) Urine Protein (Negative) Urine Glucose (UA) (Negative) g/dL Urine Ketones (NEGATIVE) Urine Occult Blood (Negative) Urine Nitrate (Negative) Urine Bilirubin (NEGATIVE) Urine Urobilinogen (0.2) E.U./dL Ur Leukocyte Esterase (NEGATIVE) Urine RBC (0-5/HPF) Urine WBC (0-5/HPF) Ur Squamous Epith Cells (0-5/HPF) Amorphous Sediment Urine Bacteria (None) Urine Mucus (Negative) Ur Culture Indicated? A. baumannii (PCR) (Not Detect) Aster albicans (PCR) (Not Detect) C. glabrata (PCR) (Not Detect) C. krusei (PCR) (Not Detect) C. parapsilosis (PCR) (Not Detect) C. tropicalis (PCR) (Not Detect) Enterobacteriac sp PCR (Not Detect) E. cloacae complex PCR (Not Detect) Enterococcus sp PCR (Not Detect) E. coli (PCR) (Not Detect) H. influenzae (PCR) (Not Detect) Influenza A & B (PCR) (Negative) Klebsiella oxytoca PCR (Not Detect) Klebsiella pneumoniae (Not Detect) List. monocytogenes PCR (Not Detect) N. meningitidis (PCR) (Not Detect) Proteus species (PCR) (Not Detect) Serratia marcescens PCR (Not Detect) Staphylococcus sp PCR (Not Detect) Staph aureus (PCR) (Not Detect) mecA-Methicil Res Gene (Not Detect) Streptococcus sp PCR (Not Detect) Group A Strep (PCR) (Not Detect) Strep agalactiae (PCR) (Not Detect) Strep pneumoniae (PCR) (Not Detect) P. aeruginosa (PCR) (Not Detect) Kailyn/B-Vanco Res Genes (Not Detect) KPC-Carbap Res Gene PCR (Not Detect) 09/26/19 09/26/19 09/26/19 Range/Units 14:33 16:10 16:32 WBC (4.5-11.0) X10^3/uL RBC (4.0-5.2) X10^6/uL Hgb (12.0-16.0) g/dL Hct (36-46) % MCV (80-100) fL MCH (26-34) PG MCHC (30-36) % RDW (11.6-14.8) % Plt Count (150-400) X10^3/uL Neut % (Auto) (50-75) % Lymph % (Auto) (25-40) % [place] % (Auto) (3-14) % Eos % (Auto) (2-4) % Baso % (Auto) (0-2) % Neut # (Auto) (9428-8870) /uL Lymph # (Auto) (0449-6035) /uL [place] # (Auto) (0-900) /uL Eos # (Auto) (0-450) /uL Baso # (Auto) (0-100) /uL Sodium (137-145) mmol/L Potassium (3.4-5.1) mmol/L Chloride (98-107) mmol/L Carbon Dioxide (22-32) mmol/L BUN (7-17) mg/dL Creatinine (0.52-1.04) mg/dL Estimated GFR (>60) mL/min BUN/Creatinine Ratio (6-22) Glucose (70-100) mg/dL Lactate 1.5 (0.7-2.1) mmol/L Calcium (8.4-10.2) mg/dL Total Bilirubin (0.2-1.3) mg/dL AST (14-36) IU/L ALT (<35) IU/L Alkaline Phosphatase (38-126) U/L Total Protein (6.3-8.2) g/dL Albumin (3.5-5.0) g/dL Globulin (1.7-4.1) g/dL Albumin/Globulin Ratio (1.0-2.8) Procalcitonin (<0.5) ng/mL Urine Color Yellow Urine Appearance Clear Urine pH 6.0 (4.5-8.0) Ur Specific [place] <=1.005 (1.000-1.035) Urine Protein Negative (Negative) Urine Glucose (UA) Negative (Negative) g/dL Urine Ketones Negative (NEGATIVE) Urine Occult Blood 3+ H (Negative) Urine Nitrate Negative (Negative) Urine Bilirubin Negative (NEGATIVE) Urine Urobilinogen 0.2 (0.2) E.U./dL Ur Leukocyte Esterase 1+ H (NEGATIVE) Urine RBC 5-10/hpf H (0-5/HPF) Urine WBC 5-10/hpf H (0-5/HPF) Ur Squamous Epith Cells 0-1 /hpf (0-5/HPF) Amorphous Sediment 1+ Urine Bacteria Few (2-10) H (None) Urine Mucus 1+ H (Negative) Ur Culture Indicated? Specimen cultured A. baumannii (PCR) (Not Detect) Aster albicans (PCR) (Not Detect) C. glabrata (PCR) (Not Detect) C. krusei (PCR) (Not Detect) C. parapsilosis (PCR) (Not Detect) C. tropicalis (PCR) (Not Detect) Enterobacteriac sp PCR (Not Detect) E. cloacae complex PCR (Not Detect) Enterococcus sp PCR (Not Detect) E. coli (PCR) (Not Detect) H. influenzae (PCR) (Not Detect) Influenza A & B (PCR) Negative (Negative) Klebsiella oxytoca PCR (Not Detect) Klebsiella pneumoniae (Not Detect) List. monocytogenes PCR (Not Detect) N. meningitidis (PCR) (Not Detect) Proteus species (PCR) (Not Detect) Serratia marcescens PCR (Not Detect) Staphylococcus sp PCR (Not Detect) Staph aureus (PCR) (Not Detect) mecA-Methicil Res Gene (Not Detect) Streptococcus sp PCR (Not Detect) Group A Strep (PCR) (Not Detect) Strep agalactiae (PCR) (Not Detect) Strep pneumoniae (PCR) (Not Detect) P. aeruginosa (PCR) (Not Detect) Kailyn/B-Vanco Res Genes (Not Detect) KPC-Carbap Res Gene PCR (Not Detect) 09/27/19 Range/Units 14:52 WBC (4.5-11.0) X10^3/uL RBC (4.0-5.2) X10^6/uL Hgb (12.0-16.0) g/dL Hct (36-46) % MCV (80-100) fL MCH (26-34) PG MCHC (30-36) % RDW (11.6-14.8) % Plt Count (150-400) X10^3/uL Neut % (Auto) (50-75) % Lymph % (Auto) (25-40) % [place] % (Auto) (3-14) % Eos % (Auto) (2-4) % Baso % (Auto) (0-2) % Neut # (Auto) (1400-3873) /uL Lymph # (Auto) (8577-8052) /uL [place] # (Auto) (0-900) /uL Eos # (Auto) (0-450) /uL Baso # (Auto) (0-100) /uL Sodium (137-145) mmol/L Potassium (3.4-5.1) mmol/L Chloride (98-107) mmol/L Carbon Dioxide (22-32) mmol/L BUN (7-17) mg/dL Creatinine (0.52-1.04) mg/dL Estimated GFR (>60) mL/min BUN/Creatinine Ratio (6-22) Glucose (70-100) mg/dL Lactate (0.7-2.1) mmol/L Calcium (8.4-10.2) mg/dL Total Bilirubin (0.2-1.3) mg/dL AST (14-36) IU/L ALT (<35) IU/L Alkaline Phosphatase (38-126) U/L Total Protein (6.3-8.2) g/dL Albumin (3.5-5.0) g/dL Globulin (1.7-4.1) g/dL Albumin/Globulin Ratio (1.0-2.8) Procalcitonin (<0.5) ng/mL Urine Color Urine Appearance Urine pH (4.5-8.0) Ur Specific [place] (1.000-1.035) Urine Protein (Negative) Urine Glucose (UA) (Negative) g/dL Urine Ketones (NEGATIVE) Urine Occult Blood (Negative) Urine Nitrate (Negative) Urine Bilirubin (NEGATIVE) Urine Urobilinogen (0.2) E.U./dL Ur Leukocyte Esterase (NEGATIVE) Urine RBC (0-5/HPF) Urine WBC (0-5/HPF) Ur Squamous Epith Cells (0-5/HPF) Amorphous Sediment Urine Bacteria (None) Urine Mucus (Negative) Ur Culture Indicated? A. baumannii (PCR) Not detected (Not Detect) Aster albicans (PCR) Not detected (Not Detect) C. glabrata (PCR) Not detected (Not Detect) C. krusei (PCR) Not detected (Not Detect) C. parapsilosis (PCR) Not detected (Not Detect) C. tropicalis (PCR) Not detected (Not Detect) Enterobacteriac sp PCR Not detected (Not Detect) E. cloacae complex PCR Not detected (Not Detect) Enterococcus sp PCR Not detected (Not Detect) E. coli (PCR) Not detected (Not Detect) H. influenzae (PCR) Not detected (Not Detect) Influenza A & B (PCR) (Negative) Klebsiella oxytoca PCR Not detected (Not Detect) Klebsiella pneumoniae Not detected (Not Detect) List. monocytogenes PCR Not detected (Not Detect) N. meningitidis (PCR) Not detected (Not Detect) Proteus species (PCR) Not detected (Not Detect) Serratia marcescens PCR Not detected (Not Detect) Staphylococcus sp PCR Not detected (Not Detect) Staph aureus (PCR) Not detected (Not Detect) mecA-Methicil Res Gene Not detected (Not Detect) Streptococcus sp PCR Detected H (Not Detect) Group A Strep (PCR) Detected H (Not Detect) Strep agalactiae (PCR) Not detected (Not Detect) Strep pneumoniae (PCR) Not detected (Not Detect) P. aeruginosa (PCR) Not detected (Not Detect) Kailyn/B-Vanco Res Genes Not detected (Not Detect) KPC-Carbap Res Gene PCR Not detected (Not Detect) Point of Care Testing Rapid Strep A Negative MDM Narrative Medical decision making narrative: Patient contacted by myself on her cell phone. We discussed that she had a positive blood culture today and with fevers yesterday and elevated heart rate that would definitely meet septic criteria I recommend she comes in for repeat evaluation, and potentially admission for IV antibiotics. Patient states that she did have a temperature overnight of 99 F but has not had anything higher temperature palma. She states she is feeling a little bit better. Patient and I discussed in her 2nd blood culture is pending she states if she continues to have fevers she will return for repeat evaluation. We discussed that there is a have probability that this is a legitimate positive blood culture and that she could have bacteremia. Patient expresses understanding and we discussed that was Streptococcus group a. We also discussed that her 2nd blood culture could take up to 24 hours to result. Patient states that she will return if she is feeling any worse but is going to wait for the second blood culture. Discharge Plan Departure Patient Disposition: Home Clinical Impression: Urinary tract infection Qualifiers: Urinary tract infection type: site unspecified Hematuria presence: without hematuria Qualified Code(s): N39.0 - Urinary tract infection, site not specified Discharge Date/Time: 09/26/19 21:29 Instructions: DI for Urinary Tract Infection (UTI), DI for Fever (Symptom) -- Adult Activity Restrictions/Additional Instructions: You were given your 1st dose of antibiotics here in the emergency department. Continue it as directed starting tomorrow. Continue to breast-feed like normal. You can do Tylenol and/or ibuprofen for fevers and body aches. Be sure to increase your fluid intake. Return to the emergency department for any new or worsening symptoms. Keep all of your scheduled medical appointments. Contact your primary provider for follow-up. Congradulations on the new addition to your family Prescriptions: New cephalexin [Keflex] 500 mg capsule 500 mg PO BID 7 Days Qty: 14 RF: 0 Referrals: Angelique Parker ARNP [Primary Care Provider] -
[2019-09-26] MEDS: cephALEXin 250 MG CAPSULE 500 MG PO (19:50)
[2019-09-27 09:00] LABS: Enterococcus species Not Detected (Not Detect); Listeria monocytogenes Not Detected (Not Detect); Methicillin-resistant gene Not Detected (Not Detect); Staphylococcus species Not Detected (Not Detect); Streptococcus agalactiae (Gr B Not Detected (Not Detect); Streptococcus pneumonia Not Detected (Not Detect); Streptococcus pyogenes (Gr A) Detected (Not Detect); Streptococcus species Detected (Not Detect); Vancomycin-rest genes A/B Not Detected (Not Detect)
[2019-09-27 09:01] LABS: Acinetobacter baumannii Not Detected (Not Detect); Candida albicans Not Detected (Not Detect); Candida glabrata Not Detected (Not Detect); Candida krusei Not Detected (Not Detect); Candida parapsilosis Not Detected (Not Detect); Candida tropicalis Not Detected (Not Detect); E. coli Not Detected (Not Detect); Enterobacter cloacae complex Not Detected (Not Detect); Enterobacteriaceae species Not Detected (Not Detect); Haemophilus influenzae Not Detected (Not Detect); KPC (carbapenem-resist gene) Not Detected (Not Detect); Neisseria meningitidis Not Detected (Not Detect); Proteus species Not Detected (Not Detect); Pseudomonas aeruginosa Not Detected (Not Detect); Serratia marcescens Not Detected (Not Detect)
== END 2019-09-26 21:29 | disposition home or self-care (01) ==
PROVIDERS: Emergency Medicine; Emergency Provider Emergency Medicine; PCP Nurse Practitioner Family
DX: N39.0 Urinary tract infection, site not specified (principal); O86.4 Pyrexia of unknown origin following delivery; R00.0 Tachycardia, unspecified; R79.89 Other specified abnormal findings of blood chemistry
CPT/HCPCS: 36415; 71046; 71275; 76705; 80053; 81001; 83605; 84145; 85025; 87040; 87077; 87086; 87147; 87150; 87186; 87205; 87502; 87880; 93005; 93010; 96360; 96361; 99284; 99285; Q9967

== ENCOUNTER 2019-09-27 13:12 | Emergency (ER) | payer OTHER, SELFPAY ==
[2019-09-27 13:23] VITALS: BP 127/76; PULSE 128; RESP 18; TEMP 37.3; O2SAT 99
[2019-09-27 14:03] LABS: Add Manual Diff / Slide Review NO; Basophils Absolute Auto 0 /uL (0-100); Basophils Percent Auto 0.2 % (0-2); Eosinophils Absolute Auto 200 /uL (0-450); Eosinophils Percent Auto 1.6 % (2-4); Hematocrit 24.4 % (36-46); Hemoglobin 8.1 g/dL (12.0-16.0); Lymphocytes Absolute Auto 500 /uL (1100-4500); Lymphocytes Percent Auto 4.4 % (25-40); Mean Corpuscular HGB Conc 33.2 % (30-36); Mean Corpuscular Hemoglobin 24.5 PG (26-34); Mean Corpuscular Volume 73.9 fL (80-100); Monocytes Absolute Auto 500 /uL (0-900); Monocytes Percent Auto 4.4 % (3-14); Neutrophils Absolute Auto 10300 /uL (1500-7000); Neutrophils Percent Auto 89.4 % (50-75); Platelet Count 179 X10^3/uL (150-400); White Blood Cell Count 11.5 X10^3/uL (4.5-11.0)
[2019-09-27] MEDS: SODIUM CHLORIDE 0.9% 1,000 ML 999 ML IV (14:08)
[2019-09-27 14:13] LABS: Alanine Aminotransferase 47 IU/L (<35); Albumin 2.8 g/dL (3.5-5.0); Albumin Globulin Ratio 1.1 (1.0-2.8); Alkaline Phosphatase 117 U/L (38-126); Aspartate Aminotransferase 43 IU/L (14-36); Bilirubin Total 0.2 mg/dL (0.2-1.3); Blood Urea Nitrogen 11 mg/dL (7-17); Carbon Dioxide 22 mmol/L (22-32); Chloride 106 mmol/L (98-107); Estimated Glomerular Filt Rate > 60.0 mL/min (>60); Globulin 2.6 g/dL (1.7-4.1); Glucose 101 mg/dL (70-100); HEMOLYSIS < 15 (0-50); Potassium 3.1 mmol/L (3.4-5.1); Sodium 135 mmol/L (137-145); Total Protein 5.4 g/dL (6.3-8.2)
[2019-09-27] MEDS: ACETAMINOPHEN 325 MG TABLET 650 MG PO (14:16)
[2019-09-27 14:30] VITALS: BP 118/73; PULSE 113; O2SAT 96
[2019-09-27 14:30] LABS: Procalcitonin 0.71 ng/mL (<0.5)
[2019-09-27 14:32] LABS: Lactate (Lactic Acid) 0.7 mmol/L (0.7-2.1)
--- NOTE | 2019-09-27 14:41 | ED.FEVER ---
HPI - Fever <MENDEZ Trujillo - Last Filed: 09/27/19 17:22> General Chief Complaint: Fever Stated Complaint: WAS TOLD TO COME IN LAB CULTURES ARE BACK IN Time Seen by Provider: 09/27/19 13:24 Source: patient Mode of arrival: Ambulatory Limitations: no limitations History of Present Illness HPI Narrative: This is a pleasant 29-year-old female, nonsmoker, day 5 with vaginal delivery was asked to return to ED due to positive blood culture with Strep the group A that was drawn during yesterday's visit. Gram stain positive blood culture for Cocci 2+. Patient was evaluated by Dr. Golden yesterday with fever and tachycardia for 2 days. She was treated with IV fluid, antibiotic medication Keflex for possible UTI. Preliminary urine culture did not show any growth today. She has been feeling better after discharge to home but still has remaining fever and T-max was 102? last night and has chills. Patient reports palpitation with fever and tachycardia yesterday prior coming into ED. Patient does not have short of breath, dyspnea but has some dry coughs which started today. She had chest x-ray and chest CTA done yesterday with unremarkable cardiopulmonary disease and no pulmonary embolism was suggested. Also abdominal ultrasound was obtained yesterday with no gallstones or cholecystitis with normal pancreas. Patient reports she had second-degree tear in perineum and labia during spontaneous delivery. Patient is not sure foul smelling lochia but lochia has been decreased in amount and color. Patient denies breast tenderness but some nipple discomfort from attempting to nurse her who had difficult time latching. Patient decided to bottle feed her at this time. Patient reports history of tachycardia after the mono infection about 3 years ago and states her baseline heart rates in 90's BMP during pre . Related Data Previous Rx's Medication Instructions Recorded cephalexin [Keflex] 500 mg PO BID 7 Days #14 cap 09/26/19 Allergies Allergy/AdvReac Type Severity Reaction Status Date / Time Penicillins Allergy Anaphylaxis Verified 09/27/19 13:14 Review of Systems <MENDEZ Trujillo - Last Filed: 09/27/19 17:22> Review of Systems Narrative: General: See HPI HEENT: Denies sinus pain, ear pain, sore throat, difficulty swallowing, dizziness. Respiratory: Denies dyspnea, cough, wheezing, hemoptysis, sputum. Cardiovascular: Denies chest pain, palpitations, orthopnea, edema. Gastrointestinal: Denies nausea, vomiting, abdominal pain, diarrhea, constipation, melena. : Burning with urination and has perineum repair during delivery. Denies frequency, incontinence, hematuria, urinary retention. Musculoskeletal: Denies weakness, joint pain or bony pain. Skin: Denies rash, skin lesions, or other. Neurologic: Denies weakness, headache, numbness, change in speech, confusion, seizures, incoordination. Psychiatric: No concerning psychosocial issues. 12-point review of systems is negative except for those stated above. Patient History <MENDEZ Trujillo - Last Filed: 09/27/19 17:22> Medical History History of multiple miscarriages (Chronic) Neurofibromatosis (Chronic) Thalassemia (Chronic) Surgical History History of dilatation and curettage (Resolved) History of loop electrical excision procedure (LEEP) (Resolved) Social History Smoking Status: Never smoker alcohol intake: current substance use type: does not use alcohol intake frequency: 0-2 drinks per day Substance Use Type: does not use Exam <MENDEZ Trujillo - Last Filed: 09/27/19 17:22> Narrative Exam Narrative: GEN: Alert, oriented x 3, well appearing and nourished, and in no acute distress. Head: Normal cephalic, atraumatic. No scalp or temporal tenderness, palpable mass or rash. EYES: Pupils are equal, round, and reactive to light and accommodation. Extraocular muscles are intact bilaterally. There is no subconjunctival hemorrhage, exudate and sclera non-icteric. ENT: Bilateral auditory canals and tympanic membranes clear. Hearing grossly intact. Nose without bleeding, purulent discharge or deviation. Facial sinuses nontender to palpate. Mucous membrane moist, no mucosal lesion. Throat without erythema, tonsillar hypertrophy or exudate. Uvula in midline, airway patent. Neck: Trachea in midline. No JVD, non-tender without lymphadenopathy. No masses or thyroid megaly. Supple, non-tender and no meningeal signs. CARDIAC: Normal regular rate and rhythm without murmurs, gallops, or rubs. No chest wall tenderness. No peripheral edema, cyanosis or pallor. Capillary refill is less than 2 seconds. RESPIRATORY: Lungs are clear to auscultate bilaterally. No cough, wheezes, rales, or rhonchi. No stridor, respiratory distress, increase work of breathing, or accessary muscle used. ABD: Abdomen soft, nontender and non-distended. No guarding or rebound tenderness to palpate. Bowel sounds are normal in all 4 quadrants. There is no palpable masses or organomegaly. EXT: Full painless ROM of all extremities with no loss of sensation, strength, effusion or edema. SKIN: Warm, dry, normal color for patient. No erythema, lesions or rash over visible areas. BACK: Nontender without deformity or crepitance. No flank tenderness. NEUROLOGICAL: Alert and oriented to place, time and person. Sensation and motor function intact bilaterally. No facial droops, dysphasia. PSYCHIATRIC: Good judgement and reason, without hallucinations, abnormal affect or abnormal behaviors during the examination. Patient is not suicidal. Initial Vital Signs Initial Vital Signs: Vital Signs Temperature 99.2 F 09/27/19 13:23 Pulse Rate 128 H 09/27/19 13:23 Respiratory Rate 18 09/27/19 13:23 Blood Pressure 127/76 09/27/19 13:23 Pulse Oximetry 99 09/27/19 13:23 Bimanual Exam- Vagina & Uterus: normal bimanual exam, normal vaginal palpation, no cervical motion tenderness and uterus soft Bimanual Exam- Adnexa, other: adnexae abnormal OB/External & Speculum: external exam normal, no vulvar erythema (Mild), vulvar tenderness (Reports lateral, tear repair), vaginal discharge (Light colored watery lochia) and other (Passing some blood clots) <Alicia Walsh, - Last Filed: 09/27/19 17:58> Initial Vital Signs Initial Vital Signs: Vital Signs Temperature 99.2 F 09/27/19 13:23 Pulse Rate 128 H 09/27/19 13:23 Respiratory Rate 18 09/27/19 13:23 Blood Pressure 127/76 09/27/19 13:23 Pulse Oximetry 99 09/27/19 13:23 Scores <Redd MikeyMENDEZ - Last Filed: 09/27/19 17:22> GCS Hensley coma scale eye opening: Spontaneous Kaely coma scale verbal response: Orientated Hensley coma scale motor response: Obey commands Kaley coma scale total score: 15 Citation: Temp > 100.4, HR.90, WBC >10%. + Strep Group A in blood culture Course <Redd AARON JensenP - Last Filed: 09/27/19 17:22> Course Course Narrative: Transfer to [place] and spoke with OB admission to Dr. Malone to tele @ [id number] Orders Ordered: ED Orders 09/27/19 13:50 Blood Culture Stat Complete Blood Count AUTO DIFF Stat Comprehensive Metabolic Panel Stat 09/27/19 14:11 Lactate (Lactic Acid) Stat Procalcitonin Stat 09/27/19 14:34 Genital Culture Stat Discontinued Medications Acetaminophen (Tylenol) 650 mg PO NOW ONE Stop: 09/27/19 14:12 Last Admin: 09/27/19 14:16 Dose: 650 mg Documented by: [facility] Sodium Chloride (Normal Saline 0.9%) 1,000 mls @ 999 mls/hr IV CONT JAYLYN Last Infusion: 09/27/19 15:11 Dose: 0 mls/hr [facility] Admin: 09/27/19 14:08 Dose: 999 mls/hr [facility] Clindamycin Phosphate (Cleocin) 900 mg in 50 mls @ 50 mls/hr IV NOW ONE Stop: 09/27/19 17:07 Last Infusion: 09/27/19 17:19 Dose: 0 mls/hr [facility] Admin: 09/27/19 16:35 Dose: 50 mls/hr Documented by: [facility] Sodium Chloride (Normal Saline 0.9%) 1,000 mls @ 150 mls/hr IV CONT JAYLYN Last Infusion: 09/27/19 17:18 Dose: 0 mls/hr [facility] Admin: 09/27/19 16:36 Dose: 150 mls/hr [facility] Potassium Chloride (Klor-Con M20) 40 meq PO NOW ONE Stop: 09/27/19 15:01 Last Admin: 09/27/19 15:10 Dose: 40 meq [facility] Vital Signs Vital signs: Vital Signs - 8 hr 09/27/19 13:23 09/27/19 14:30 09/27/19 15:14 Temperature 99.2 F 98.3 F Pulse Rate 128 H 113 H 118 H Respiratory Rate 18 18 Blood Pressure 127/76 Blood Pressure [Left Arm] 118/73 Blood Pressure [Right Arm] 118/73 Pulse Oximetry 99 96 99 09/27/19 15:17 09/27/19 16:00 09/27/19 16:30 Temperature 98.3 F Pulse Rate 14 L 111 H Respiratory Rate Blood Pressure Blood Pressure [Left Arm] 102/63 109/65 Blood Pressure [Right Arm] Pulse Oximetry 99 99 <Alicia Walsh, DO - Last Filed: 09/27/19 17:58> Orders Ordered: ED Orders 09/27/19 13:50 Blood Culture Stat Complete Blood Count AUTO DIFF Stat Comprehensive Metabolic Panel Stat 09/27/19 14:11 Lactate (Lactic Acid) Stat Procalcitonin Stat 09/27/19 14:34 Genital Culture Stat Discontinued Medications Acetaminophen (Tylenol) 650 mg PO NOW ONE Stop: 09/27/19 14:12 Last Admin: 09/27/19 14:16 Dose: 650 mg [facility]: [facility] Sodium Chloride (Normal Saline 0.9%) 1,000 mls @ 999 mls/hr IV CONT JAYLYN Last Infusion: 09/27/19 15:11 Dose: 0 mls/hr [facility] Admin: 09/27/19 14:08 Dose: 999 mls/hr [facility] Clindamycin Phosphate (Cleocin) 900 mg in 50 mls @ 50 mls/hr IV NOW ONE Stop: 09/27/19 17:07 Last Infusion: 09/27/19 17:19 Dose: 0 mls/hr [facility] Admin: 09/27/19 16:35 Dose: 50 mls/hr [facility] Sodium Chloride (Normal Saline 0.9%) 1,000 mls @ 150 mls/hr IV CONT JAYLYN Last Infusion: 09/27/19 17:18 Dose: 0 mls/hr [facility] Admin: 09/27/19 16:36 Dose: 150 mls/hr Documented by: [facility] Potassium Chloride (Klor-Con M20) 40 meq PO NOW ONE Stop: 09/27/19 15:01 Last Admin: 09/27/19 15:10 Dose: 40 meq Documented by: [facility] Vital Signs Vital signs: Vital Signs - 8 hr 09/27/19 13:23 09/27/19 14:30 09/27/19 15:14 Temperature 99.2 F 98.3 F Pulse Rate 128 H 113 H 118 H Respiratory Rate 18 18 Blood Pressure 127/76 Blood Pressure [Left Arm] 118/73 Blood Pressure [Right Arm] 118/73 Pulse Oximetry 99 96 99 09/27/19 15:17 09/27/19 16:00 09/27/19 16:30 Temperature 98.3 F Pulse Rate 14 L 111 H Respiratory Rate Blood Pressure Blood Pressure [Left Arm] 102/63 109/65 Blood Pressure [Right Arm] Pulse Oximetry 99 99 MDM - Fever <Redd Wiley-Marcinabdirahman [employer] WORKER - Last Filed: 09/27/19 17:22> Differential Diagnosis Differential diagnosis: Likely fever of unknown origin, sepsis and other (Bacteremia) Medical Records Attestation: I reviewed the patient's medical records. Lab Data Attestation: I reviewed the patient's lab results. Result diagrams: 09/27/19 13:50 09/27/19 13:50 Labs: Lab Results 09/27/19 09/27/19 09/27/19 Range/Units 13:50 13:50 14:11 WBC 11.5 H (4.5-11.0) X10^3/uL RBC 3.30 L (4.0-5.2) X10^6/uL Hgb 8.1 L (12.0-16.0) g/dL Hct 24.4 L (36-46) % MCV 73.9 L (80-100) fL MCH 24.5 L (26-34) PG MCHC 33.2 (30-36) % RDW 16.0 H (11.6-14.8) % Plt Count 179 (150-400) X10^3/uL Neut % (Auto) 89.4 H (50-75) % Lymph % (Auto) 4.4 L (25-40) % [place] % (Auto) 4.4 (3-14) % Eos % (Auto) 1.6 L (2-4) % Baso % (Auto) 0.2 (0-2) % Neut # (Auto) 13748 H (9609-2300) /uL Lymph # (Auto) 500 L (8316-9543) /uL [place] # (Auto) 500 (0-900) /uL Eos # (Auto) 200 (0-450) /uL Baso # (Auto) 0 (0-100) /uL Sodium 135 L (137-145) mmol/L Potassium 3.1 L (3.4-5.1) mmol/L Chloride 106 (98-107) mmol/L Carbon Dioxide 22 (22-32) mmol/L BUN 11 (7-17) mg/dL Creatinine 0.50 L (0.52-1.04) mg/dL Estimated GFR > 60.0 (>60) mL/min BUN/Creatinine Ratio 22.0 (6-22) Glucose 101 H (70-100) mg/dL Lactate (0.7-2.1) mmol/L Calcium 8.0 L (8.4-10.2) mg/dL Total Bilirubin 0.2 (0.2-1.3) mg/dL AST 43 H (14-36) IU/L ALT 47 H (<35) IU/L Alkaline Phosphatase 117 (38-126) U/L Total Protein 5.4 L (6.3-8.2) g/dL Albumin 2.8 L (3.5-5.0) g/dL Globulin 2.6 (1.7-4.1) g/dL Albumin/Globulin Ratio 1.1 (1.0-2.8) Procalcitonin 0.71 H (<0.5) ng/mL 09/27/19 Range/Units 14:11 WBC (4.5-11.0) X10^3/uL RBC (4.0-5.2) X10^6/uL Hgb (12.0-16.0) g/dL Hct (36-46) % MCV (80-100) fL MCH (26-34) PG MCHC (30-36) % RDW (11.6-14.8) % Plt Count (150-400) X10^3/uL Neut % (Auto) (50-75) % Lymph % (Auto) (25-40) % [place] % (Auto) (3-14) % Eos % (Auto) (2-4) % Baso % (Auto) (0-2) % Neut # (Auto) (0420-4353) /uL Lymph # (Auto) (3200-7694) /uL [place] # (Auto) (0-900) /uL Eos # (Auto) (0-450) /uL Baso # (Auto) (0-100) /uL Sodium (137-145) mmol/L Potassium (3.4-5.1) mmol/L Chloride (98-107) mmol/L Carbon Dioxide (22-32) mmol/L BUN (7-17) mg/dL Creatinine (0.52-1.04) mg/dL Estimated GFR (>60) mL/min BUN/Creatinine Ratio (6-22) Glucose (70-100) mg/dL Lactate 0.7 (0.7-2.1) mmol/L Calcium (8.4-10.2) mg/dL Total Bilirubin (0.2-1.3) mg/dL AST (14-36) IU/L ALT (<35) IU/L Alkaline Phosphatase (38-126) U/L Total Protein (6.3-8.2) g/dL Albumin (3.5-5.0) g/dL Globulin (1.7-4.1) g/dL Albumin/Globulin Ratio (1.0-2.8) Procalcitonin (<0.5) ng/mL MDM Narrative Medical decision making narrative: This is a 29-year-old female, return to ED today after she was contacted from ED staff due to 1 of her blood culture result came back positive for strep group A. Patient is nontoxic appearing. Patient reports has been feeling a bit improved since she was seen in ED last night and discharged to home with Keflex. Patient continue to had fever last night up to 102 but has been improved this morning and remaining in mid 99 this morning. She has been using Tylenol and Motrin alternating dose around the clock. Patient denies pain in her breasts. Mild discomfort in perineum area due to secondary tear including labia. Perineum does not appears to be significantly having erythema, warmth, pain with palpation. Mild abdominal discomfort with palpation. There was no CMT tenderness by bimanual exam. Genital culture has been obtained and sent out to lab. Today's white count has improved to 11.5 from 14.9 yesterday with decreased H&H to 8.1/24.4. Normal lactate today but increased procalcitonin as 0.71. Patient continued to have tachycardia in mid 110 after a liter of NS infusion. Patient was consulted with the hospitalist at [facility] but was informed that patient will be needing GAMA procedure and echochardiogram to r/o vegetation in cardiac valve which is not available at [facility]. Findings were discussed with patient and patient elected to transfer to [facility] where she works and had delivered her . Transfer Center was contacted and spoke with Dr. Joshua and she kindly accepted patient's care. Patient is currently receiving gentle hydration with normal saline and received clindamycin 900 mg IV prior living ER. All required documents has been completed for transfer. Patient verbalized understanding and agrees with the treatment plan. <Alicia Walsh, DO - Last Filed: 09/27/19 17:58> Lab Data Attestation: I reviewed the patient's lab results. Labs: Lab Results 09/27/19 09/27/19 09/27/19 Range/Units 13:50 13:50 14:11 WBC 11.5 H (4.5-11.0) X10^3/uL RBC 3.30 L (4.0-5.2) X10^6/uL Hgb 8.1 L (12.0-16.0) g/dL Hct 24.4 L (36-46) % MCV 73.9 L (80-100) fL MCH 24.5 L (26-34) PG MCHC 33.2 (30-36) % RDW 16.0 H (11.6-14.8) % Plt Count 179 (150-400) X10^3/uL Neut % (Auto) 89.4 H (50-75) % Lymph % (Auto) 4.4 L (25-40) % [place] % (Auto) 4.4 (3-14) % Eos % (Auto) 1.6 L (2-4) % Baso % (Auto) 0.2 (0-2) % Neut # (Auto) 81739 H (8525-8758) /uL Lymph # (Auto) 500 L (1238-1021) /uL [place] # (Auto) 500 (0-900) /uL Eos # (Auto) 200 (0-450) /uL Baso # (Auto) 0 (0-100) /uL Sodium 135 L (137-145) mmol/L Potassium 3.1 L (3.4-5.1) mmol/L Chloride 106 (98-107) mmol/L Carbon Dioxide 22 (22-32) mmol/L BUN 11 (7-17) mg/dL Creatinine 0.50 L (0.52-1.04) mg/dL Estimated GFR > 60.0 (>60) mL/min BUN/Creatinine Ratio 22.0 (6-22) Glucose 101 H (70-100) mg/dL Lactate (0.7-2.1) mmol/L Calcium 8.0 L (8.4-10.2) mg/dL Total Bilirubin 0.2 (0.2-1.3) mg/dL AST 43 H (14-36) IU/L ALT 47 H (<35) IU/L Alkaline Phosphatase 117 (38-126) U/L Total Protein 5.4 L (6.3-8.2) g/dL Albumin 2.8 L (3.5-5.0) g/dL Globulin 2.6 (1.7-4.1) g/dL Albumin/Globulin Ratio 1.1 (1.0-2.8) Procalcitonin 0.71 H (<0.5) ng/mL 09/27/19 Range/Units 14:11 WBC (4.5-11.0) X10^3/uL RBC (4.0-5.2) X10^6/uL Hgb (12.0-16.0) g/dL Hct (36-46) % MCV (80-100) fL MCH (26-34) PG MCHC (30-36) % RDW (11.6-14.8) % Plt Count (150-400) X10^3/uL Neut % (Auto) (50-75) % Lymph % (Auto) (25-40) % [place] % (Auto) (3-14) % Eos % (Auto) (2-4) % Baso % (Auto) (0-2) % Neut # (Auto) (5719-9238) /uL Lymph # (Auto) (0057-2466) /uL [place] # (Auto) (0-900) /uL Eos # (Auto) (0-450) /uL Baso # (Auto) (0-100) /uL Sodium (137-145) mmol/L Potassium (3.4-5.1) mmol/L Chloride (98-107) mmol/L Carbon Dioxide (22-32) mmol/L BUN (7-17) mg/dL Creatinine (0.52-1.04) mg/dL Estimated GFR (>60) mL/min BUN/Creatinine Ratio (6-22) Glucose (70-100) mg/dL Lactate 0.7 (0.7-2.1) mmol/L Calcium (8.4-10.2) mg/dL Total Bilirubin (0.2-1.3) mg/dL AST (14-36) IU/L ALT (<35) IU/L Alkaline Phosphatase (38-126) U/L Total Protein (6.3-8.2) g/dL Albumin (3.5-5.0) g/dL Globulin (1.7-4.1) g/dL Albumin/Globulin Ratio (1.0-2.8) Procalcitonin (<0.5) ng/mL MDM Narrative Medical decision making narrative: Patient was contacted by myself to return if she had a positive blood culture with tachycardia and fever yesterday. Her 2nd blood culture is still pending. They are from 09/26/2019. For Streptococcus/group a strep. White count had improved from 14-11 hemoglobin went from 9.4 to 8.1, patient's electrolytes show a hypokalemia at 3.1. Renal function appears normal. Patient's LFTs are slightly elevated but about the same as yesterday at 43 and 47 with a normal bilirubin and alk-phos. Patient's lactate was normal at 0.7, procalcitonin had increased from 0.42 to a positive 0.71 in the last 24 hours. Our nurse practitioner spoke with hospitalist who would like patient transferred for echo and GAMA which we do not have available here. Patient was started on a dose of IV antibiotics, Clindamycin while in department and was transferred to [facility] where she delivered after being accepted by the hospitalist. Discharge Plan Departure Patient Disposition: Xfer Acute Care Hospital Clinical Impression: Bacteremia Sepsis Qualifiers: Sepsis type: Streptococcus group A Sepsis acute organ dysfunction status: unspecified Qualified Code(s): A40.0 - Sepsis due to streptococcus, group A Discharge Date/Time: 09/27/19 17:22 Prescriptions: No Action cephalexin [Keflex] 500 mg capsule 500 mg PO BID 7 Days Qty: 14 RF: 0 Referrals: Angelique Parker ARNP [Primary Care Provider] -
[2019-09-27] MEDS: POTASSIUM CHLORIDE 20 MEQ TAB 40 MEQ PO (15:10)
[2019-09-27 15:14] VITALS: BP 118/73; PULSE 118; RESP 18; TEMP 36.8; O2SAT 99
[2019-09-27 15:17] VITALS: TEMP 36.8
[2019-09-27 16:00] VITALS: BP 102/63; PULSE 14; O2SAT 99
[2019-09-27 16:30] VITALS: BP 109/65; PULSE 111; O2SAT 99
[2019-09-27] MEDS: CLINDAMYCIN 900 MG/50 ML PIGGYBACK 50 MG IV (16:35)
[2019-09-27] MEDS: SODIUM CHLORIDE 0.9% 1,000 ML 150 ML IV (16:36)
--- NOTE | 2019-09-27 16:54 | PC.NURSE ---
report to CJ at [place]
--- NOTE | 2019-09-27 17:15 | PC.NURSE ---
Report given to ALEJANDRA Marte by MICHELET Guzman
--- NOTE | 2019-09-27 17:23 | PC.NURSE ---
pt discharged with antibx and maintenance fluids continued on transport
== END 2019-09-27 17:22 | disposition short-term general hospital (02) ==
PROVIDERS: Emergency Provider Nurse Practitioner Family; PCP Nurse Practitioner Family
DX: O85 Puerperal sepsis (principal); R78.81 Bacteremia
CPT/HCPCS: 36415; 80053; 83605; 84145; 85025; 87040; 87070; 87077; 87147; 87205; 96361; 96365; 99283; 99284